=== PATIENT | male | born 1975 | race African-American/Black ===

== ENCOUNTER 2016-12-14 11:49 | Emergency (ER) | payer OTHER ==
[2016-12-14 11:54] VITALS: BP 107/87; PULSE 75; TEMP 98.4; BMI 23.7
== END 2016-12-14 12:39 | disposition left against medical advice (07) ==
LOC: FER 11:49
DX: Z53.21 Procedure and treatment not carried out due to patient leaving prior to being seen by health care provider (principal)
CPT/HCPCS: 99281-25

== ENCOUNTER 2016-12-14 12:47 | Emergency (ER) | payer OTHER ==
[2016-12-14 13:03] VITALS: BP 109/66; PULSE 72; TEMP 98; BMI 24.4
--- NOTE | 2016-12-14 13:20 | PDOC ---
History of Present Illness - General Chief Complaint: Injury Stated Complaint: RT HAND INJURY Time Seen by Provider: 12/14/16 13:04 History Source: Patient Exam Limitations: No Limitations - History of Present Illness Initial Comments: 12/14/16 13:16 CHIEF COMPLAINT: Swelling, bruising to base of right fifth finger HISTORY OF PRESENT ILLNESS: Patient is a 41-year-old male, autistic with compulsive behavior, ptosis of right eye and hypertension. Patient brought in by staff for evaluation of swelling and bruising to right fifth finger unknown injury.Good range of motion to finger. Timing/Duration: other (unknown) Severity: moderate Past History - Past Medical History Allergies/Adverse Reactions: Allergies Allergy/AdvReac Type Severity Reaction Status Date / Time Anticholinergics - Quaternary Allergy Unknown Verified 12/14/16 12:58 [Anticholinergics,Quaternary] lactose AdvReac Mild Verified 12/14/16 12:58 Home Medications: Ambulatory Orders Glycerin/Propylene Glycol [Artificial Tears Drops] 15 ml OU PRN PRN 10/31/11 Loratadine [Claritin] 10 mg PO DAILY 10/31/11 Metoprolol Tartrate [Lopressor] 25 mg PO BID 10/31/11 Cholecalciferol (Vitamin D3) [Vitamin D3] 1,000 unit PO HS 11/13/12 Mag Hydrox/Al Hydrox/Simeth [Mylanta *Suspension*] 30 ml PO ONCE 11/13/12 Olopatadine HCl [Patanol] 5 ml OP PRN PRN 11/13/12 Triamcinolone 55Mcg [place] - [Nasacort Aq Nasal [place] -] 2 spray NS DAILY Atorvastatin Ca [Lipitor] 20 mg NR ASDIR 12/14/16 Clonazepam [Klonopin] 1 mg PO ASDIR 12/14/16 Thioridazine HCl [Mellaril] 10 mg NR ASDIR 12/14/16 Cardiac Disorders: Yes (TACHYCARDIA) HTN: Yes Psychiatric Problems: Yes (COMPULSIVE D/O) Other medical history: AUTISM,RT EYE PTOSIS - Psycho/Social/Smoking Cessation Hx Anxiety: No Suicidal Ideation: No Smoking Status: No Smoking History: Unknown if ever smoked Have you smoked in the past 12 months: No Number of Cigarettes Smoked Daily: 0 Information on smoking cessation initiated: No Hx Alcohol Use: No Drug/Substance Use Hx: No Review of Systems - Review of Systems Constitutional: No: Symptoms Reported Musculoskeletal: Yes: Joint Pain, Joint Swelling Integumentary: Yes: Bruising, Erythema Neurological: No: Paresthesia, Tingling, Tremors All Other Systems: Reviewed and Negative *Physical Exam - Vital Signs Last Vital Signs Temp Pulse Resp BP Pulse Ox 98.0 F 72 18 109/66 100 12/14/16 13:00 12/14/16 13:00 12/14/16 13:00 12/14/16 13:00 12/14/16 13:00 - Physical Exam General Appearance: Yes: Appropriately Dressed. No: Apparent Distress Extremity: positive: Swelling, Erythema Integumentary: positive: Erythema, Swelling, Bruising (base of the right fifth finger, combs surface. ) Neurologic: positive: Alert, Normal Mood/Affect ED Treatment Course - RADIOLOGY Radiology Studies Ordered: Category Date Time Status HAND- RIGHT [RAD] Stat Radiology 12/14/16 13:12 Ordered Medical Decision Making - Medical Decision Making 12/14/16 13:23 A/P: Patient with injury to right fifth finger patient is nonverbal, exact incident is unknown the cause of the pain and swelling will send for x-ray to rule out fracture X-ray was negative we'll DC patient home with instructions to staff. *DC/Admit/Observation/Transfer Diagnosis at time of Disposition: Swollen finger - Discharge Dispostion Disposition: HOME Condition at time of disposition: Good Admit: No - Patient Instructions Additional Instructions: X-ray performed in emergency department is negative for acute fracture dislocation, if patient demonstrates any pain medicate with Motrin as needed, follow up as needed.
== END 2016-12-14 13:52 | disposition home or self-care (01) ==
LOC: JERFT 12:47
DX: M79.89 Other specified soft tissue disorders (principal); S69.81XA Other specified injuries of right wrist, hand and finger(s), initial encounter; X58.XXXA Exposure to other specified factors, initial encounter; Y93.89 Activity, other specified; Y92.89 Other specified places as the place of occurrence of the external cause; F84.0 Autistic disorder; F60.5 Obsessive-compulsive personality disorder; I10 Essential (primary) hypertension; H02.401 Unspecified ptosis of right eyelid
CPT/HCPCS: 73130-TC-RT; 99281-25

== ENCOUNTER 2017-08-02 19:54 | Emergency (ER) | payer OTHER ==
[2017-08-02 20:08] VITALS: BP 121/76; PULSE 89; TEMP 99.4; BMI 24.1
--- NOTE | 2017-08-02 20:22 | PDOC ---
History of Present Illness - History of Present Illness Initial Comments: 08/02/17 20:27 42 y/o M with a PMH of schizophrenia, autism with compulsive behavior presents to the ED after hitting his head against the wall. Patient is accompanied by his aide from [facility] who reports that the patient got upset and ran to his room. His aide found him with blood on the right side and left side of his head, with 3 dents in the wall from his head. Aide reports that he was given medication to calm him down and he is now acting like himself. <Nadeen Macario - Last Filed: 08/02/17 20:27> - History of Present Illness Initial Comments: 08/02/17 20:17 Physical exam: No acute distress, cooperative. Does not appear drowsy or lethargic, but affect flat consistent with his schizophrenia. His aide, who has known him for some time, states that his physical appearance and his behavior is unchanged from his baseline. Afebrile, vital signs normal Head: Superficial abrasion of the left parieto-occipital scalp. No bleeding. No deep puncture laceration. No swelling, tenderness, contusion, hematoma, or defect palpable. PERRLA 4 mm, fundi benign with sharp disc margins and good central venous pulsations. Right ptosis is old, according to his aide, and unchanged. ENT clear Neck without tenderness or deformity of the vertebral bodies, full range of motion without pain Chest clear to P&A, no chest wall or rib cage tenderness or deformity CV regular without murmur rub or gallop pulses full and symmetric no JVD or edema Abdomen soft nontender without mass or organomegaly. No pelvic or spine deformity or tenderness. Neurological C2 to 12 intact, except for old right ptosis. Strength full and symmetric. No focal sensory or motor deficits. Gait stable and unimpaired Impression: Superficial abrasion of the scalp no sign of serious head injury Plan: Clean and dress abrasions, head injury instructions, recheck if further symptoms develop. Fully ambulatory and in no distress upon discharge with his aide to follow-up as recommended <Joss Rust - Last Filed: 08/02/17 21:13> - General Chief Complaint: Injury Stated Complaint: HEAD LACERATION Time Seen by Provider: 08/02/17 20:06 Past History <Nadeen Macario - Last Filed: 08/02/17 20:27> - Past Medical History Cardiac Disorders: Yes (TACHYCARDIA) COPD: No HTN: Yes Psychiatric Problems: Yes (COMPULSIVE D/O) Other medical history: AUTISM, MUTE, PTOSIS RIGHT EYE, DRY SKIN - Suicide/Smoking/Psychosocial Hx Smoking Status: No Smoking History: Never smoked Have you smoked in the past 12 months: No Number of Cigarettes Smoked Daily: 0 Hx Alcohol Use: No Drug/Substance Use Hx: No Substance Use Type: None <Joss Rust - Last Filed: 08/02/17 21:13> - Past Medical History Allergies/Adverse Reactions: Allergies Allergy/AdvReac Type Severity Reaction Status Date / Time Anticholinergics - Quaternary Allergy Unknown Verified 12/14/16 12:58 [Anticholinergics,Quaternary] isopropamide Allergy Unknown Verified 08/02/17 19:56 lactose AdvReac Mild Verified 12/14/16 12:58 Home Medications: Ambulatory Orders Glycerin/Propylene Glycol [Artificial Tears Drops] 15 ml OU PRN PRN 10/31/11 Metoprolol Tartrate [Lopressor] 25 mg PO BID 10/31/11 Cholecalciferol (Vitamin D3) [Vitamin D3] 1,000 unit PO HS 11/13/12 Atorvastatin Ca [Lipitor] 20 mg NR ASDIR 12/14/16 Clonazepam [Klonopin] 1 mg PO ASDIR 12/14/16 Thioridazine HCl [Mellaril] 10 mg NR BID 12/14/16 Fexofenadine HCl [Lydia Allergy] 180 mg PO DAILY 08/02/17 *Physical Exam - Vital Signs Last Vital Signs Temp Pulse Resp BP Pulse Ox 99.4 F 89 16 121/76 100 08/02/17 19:55 08/02/17 19:55 08/02/17 19:55 08/02/17 19:55 08/02/17 19:55 <Nadeen Macario - Last Filed: 08/02/17 20:27> - Vital Signs Last Vital Signs Temp Pulse Resp BP Pulse Ox 99.4 F 89 16 121/76 100 08/02/17 19:55 08/02/17 19:55 08/02/17 19:55 08/02/17 19:55 08/02/17 19:55 <Joss Rust - Last Filed: 08/02/17 21:13> *DC/Admit/Observation/Transfer - Attestations Scribe Attestion: 08/02/17 20:28 Documentation prepared by Nadeen Macario, acting as biomedical engineering supervisor for Joss Bearden MD. <Nadeen Macario - Last Filed: 08/02/17 20:27> - Discharge Dispostion Admit: No <Joss Rust - Last Filed: 08/02/17 21:13> Diagnosis at time of Disposition: Abrasion of scalp Qualifiers: Encounter type: initial encounter Qualified Code(s): S00.01XA - Abrasion of scalp, initial encounter - Discharge Dispostion Disposition: HOME Condition at time of disposition: Improved - Referrals Referrals: [facility] [Primary Care Provider] - 24 hours - Patient Instructions Printed Discharge Instructions: Tetanus, Diphtheria, Pertussis (Tdap) Vaccine, DI for Closed Head Injury, DI for Abrasion - Post Discharge Activity
[2017-08-02] MEDS ORDERED: DIPHTH,PERTUSS(ACELL),TET 0.5 ML DISP.SYRIN IM ONE (20:27)
== END 2017-08-02 20:40 | disposition home or self-care (01) ==
LOC: FER 19:54
PROC: 3E0234Z Introduction of Serum, Toxoid and Vaccine into Muscle, Percutaneous Approach (ICD-10-PCS; principal; 2017-08-02)
DX: S00.01XA Abrasion of scalp, initial encounter (principal); W22.01XA Walked into wall, initial encounter; Y93.89 Activity, other specified; Y92.89 Other specified places as the place of occurrence of the external cause; F20.9 Schizophrenia, unspecified; F84.0 Autistic disorder; I10 Essential (primary) hypertension
CPT/HCPCS: 90715; 99282-25

== ENCOUNTER 2018-08-22 15:13 | Emergency (ER) | payer OTHER ==
[2018-08-22] MEDS ORDERED: TETRACAINE 0.5% HCL 0.6ML DROPPER.BOTTLE OD ONE (15:23)
[2018-08-22] MEDS ORDERED: FLUORESCEIN NA 1 EA STRIP OD ONE (15:23)
[2018-08-22] MEDS ORDERED: FLUORESCEIN NA 1 EA STRIP ONE (15:25)
[2018-08-22] MEDS ORDERED: TETRACAINE 0.5% OPHTH SOLN 2 ML BOTTLE ONE (15:25)
--- NOTE | 2018-08-22 15:39 | PDOC ---
History of Present Illness - General Chief Complaint: Eye Problem Stated Complaint: LEFT EYE REDNESS Time Seen by Provider: 08/22/18 15:19 History Source: Patient Exam Limitations: Clinical Condition - History of Present Illness Initial Comments: 08/22/18 15:34 Patient is a 43M with history of autism (non-verbal) with several behavioral disorders here today complaining of a red eye that started yesterday. Patient had a runny nose for the past several days as well. Aide reports that he has a history of smearing feces and self-harm. No other symptoms have been noted. History is limited as patient is very limited when it comes to communication. Past History - Past Medical History Allergies/Adverse Reactions: Allergies Allergy/AdvReac Type Severity Reaction Status Date / Time Anticholinergics - Quaternary Allergy Unknown Verified 08/22/18 15:19 [Anticholinergics,Quaternary] isopropamide Allergy Unknown Verified 08/22/18 15:19 lactose AdvReac Mild Verified 08/22/18 15:19 Home Medications: Ambulatory Orders Glycerin/Propylene Glycol [Artificial Tears Drops] 15 ml OU PRN PRN 10/31/11 Metoprolol Tartrate [Lopressor] 25 mg PO BID 10/31/11 Cholecalciferol (Vitamin D3) [Vitamin D3] 1,000 unit PO HS 11/13/12 Atorvastatin Ca [Lipitor] 20 mg NR ASDIR 12/14/16 Clonazepam [Klonopin] 1 mg PO ASDIR 12/14/16 Thioridazine HCl [Mellaril] 10 mg NR BID 12/14/16 Fexofenadine HCl [Lydia Allergy] 180 mg PO DAILY 08/02/17 Erythromycin 0.5% Eye Ointment [Erythromycin 0.5% Eye Ointment -] 1 applic OD DAILY #1 tube 08/22/18 Polymyxin B Sulf/Trimethoprim [Polymyxin B-Tmp Eye Drops] 1 drop OD TID 10 Days #10 ml 08/22/18 Cardiac Disorders: Yes (TACHYCARDIA) COPD: No HTN: Yes Psychiatric Problems: Yes (COMPULSIVE D/O) Other medical history: AUTISM,RT EYE PTOSIS - Suicide/Smoking/Psychosocial Hx Smoking Status: No Smoking History: Never smoked Have you smoked in the past 12 months: No Number of Cigarettes Smoked Daily: 0 Information on smoking cessation initiated: No Hx Alcohol Use: No Drug/Substance Use Hx: No Substance Use Type: None Review of Systems - Review of Systems Able to Perform ROS?: No (2/2 clinical condition) *Physical Exam - Vital Signs Last Vital Signs Temp Pulse Resp BP Pulse Ox 98.4 F 87 20 109/68 100 08/22/18 15:15 08/22/18 15:15 08/22/18 15:15 08/22/18 15:15 08/22/18 15:15 - Physical Exam Comments: 08/22/18 15:38 GENERAL: Awake, alert, and fully oriented, in no acute distress HEAD: No signs of trauma, normocephalic, atraumatic EYES: PERRLA, EOMI, sclera anicteric, swollen eyelid on right, no photophobia, injected sclera on right. Fluorescein exam normal. ENT: Auricles normal inspection, hearing grossly normal, nares patent, oropharynx clear without exudates. Moist mucosa NECK: Normal ROM, supple, no lymphadenopathy, JVD, or masses LUNGS: No distress, speaks full sentences, clear to auscultation bilaterally HEART: Regular rate and rhythm, normal S1 and S2, no murmurs, rubs or gallops, peripheral pulses normal and equal bilaterally. ABDOMEN: Soft, nontender, normoactive bowel sounds. No guarding, no rebound. No masses EXTREMITIES: Normal inspection, Normal range of motion, no edema. No clubbing or cyanosis. NEUROLOGICAL: Cranial nerves II through XII grossly intact. Normal speech, normal gait, no focal sensorimotor deficits SKIN: Warm, Dry, normal turgor, no rashes or lesions noted. Moderate Sedation - Procedure Monitoring Vital Signs: Procedure Monitoring Vital Signs Temperature 98.4 F 08/22/18 15:15 Pulse Rate 87 08/22/18 15:15 Respiratory Rate 20 08/22/18 15:15 Blood Pressure 109/68 08/22/18 15:15 O2 Sat by Pulse Oximetry (%) 100 08/22/18 15:15 ED Treatment Course - Medications Given in the ED: ED Medications Discontinued Medications Generic Name Dose Route Start Last Admin Trade Name Freq PRN Reason Stop Dose Admin Fluorescein Sodium 1 ea 08/22/18 15:23 08/22/18 15:26 Fluorets - OD 08/22/18 15:24 1 ea ONCE ONE Administration Tetracaine HCl 1 drop 08/22/18 15:23 08/22/18 15:26 Tetravisc 0.5% Eye Drops - OD 08/22/18 15:24 1 drop ONCE ONE Administration Medical Decision Making - Medical Decision Making 08/22/18 15:38 Patient is 43M here today with conjunctivitis. Given risk factors, will cover. Patient has optho follow up available through [facility]. Aide aware of need to follow up. *DC/Admit/Observation/Transfer Diagnosis at time of Disposition: Conjunctivitis - Discharge Dispostion Disposition: HOME Condition at time of disposition: Good Decision to Admit order: No - Prescriptions Prescriptions: Erythromycin 0.5% Eye Ointment [Erythromycin 0.5% Eye Ointment -] 1 applic OD DAILY #1 tube Polymyxin B Sulf/Trimethoprim [Polymyxin B-Tmp Eye Drops] 1 drop OD TID 10 Days #10 ml - Referrals - Patient Instructions Printed Discharge Instructions: Conjunctivitis Additional Instructions: Please follow up with optho tomorrow. Please return if you have any new worsening or concerning symptoms. - Post Discharge Activity
--- NOTE | 2018-08-22 15:47 | PDOC ---
Attending Attestation - Resident Resident Name: DaledanielJake - ED Attending Attestation I have performed the following: I have examined & evaluated the patient, The case was reviewed & discussed with the resident, I agree w/resident's findings & plan, Exceptions are as noted - HPI HPI: 08/22/18 15:45 43 yo male h/o autism often spreading feces, here with c/o bilat eye redness. started few days ago. no f/c no cough did have mild rhinorrhea earlier today. no other comlaints. pt is nonverbal. does communicate with signs. history provided by worker from [facility]. - Physicial Exam PE: 08/22/18 15:46 bilat eye conj injected. no discharge. right eye lid ptosis ( old) PerrL. flourescin no uptake with [place] lamp. eomi. lungs clear bilaterally heart rrr no mrg. - Medical Decision Making 08/22/18 15:47 likely viral conjunctivitis but due to fact [facility] will tx with abx. polytrim and erythromycin ointment.
[2018-08-22 15:58] VITALS: BP 109/68; PULSE 87; TEMP 98.4; BMI 23.0
== END 2018-08-22 16:14 | disposition home or self-care (01) ==
LOC: FER 15:13
DX: H10.9 Unspecified conjunctivitis (principal); F84.0 Autistic disorder; I10 Essential (primary) hypertension; F42.9 Obsessive-compulsive disorder, unspecified
CPT/HCPCS: 99281-25

== ENCOUNTER 2019-01-10 10:45 | Emergency (ER) | payer OTHER ==
[2019-01-10 11:13] VITALS: BP 108/63; PULSE 73; TEMP 97.8; BMI 24.4
--- NOTE | 2019-01-10 11:31 | PDOC ---
History of Present Illness - General Chief Complaint: Pain Stated Complaint: ABD PAIN Time Seen by Provider: 01/10/19 11:27 History Source: Patient Exam Limitations: Other (autisim) Past History - Past Medical History Allergies/Adverse Reactions: Allergies Allergy/AdvReac Type Severity Reaction Status Date / Time Anticholinergics - Quaternary Allergy Unknown Verified 01/10/19 11:10 [Anticholinergics,Quaternary] isopropamide Allergy Unknown Verified 01/10/19 11:10 lactose AdvReac Mild Verified 01/10/19 11:10 Home Medications: Ambulatory Orders Glycerin/Propylene Glycol [Artificial Tears Drops] 15 ml OU PRN PRN 10/31/11 Metoprolol Tartrate [Lopressor] 25 mg PO BID 10/31/11 Cholecalciferol (Vitamin D3) [Vitamin D3] 1,000 unit PO HS 11/13/12 Atorvastatin Ca [Lipitor] 20 mg NR ASDIR 12/14/16 Clonazepam [Klonopin] 1 mg PO ASDIR 12/14/16 Thioridazine HCl [Mellaril] 10 mg NR BID 12/14/16 Fexofenadine HCl [Lydia Allergy] 180 mg PO DAILY 08/02/17 Gentamicin 0.3% Eye Ointment - 1 applic TP TID #1 tube 08/23/18 Cardiac Disorders: Yes (TACHYCARDIA) COPD: No HTN: Yes Psychiatric Problems: Yes (COMPULSIVE D/O) - Suicide/Smoking/Psychosocial Hx Smoking Status: No Smoking History: Never smoked Have you smoked in the past 12 months: No Number of Cigarettes Smoked Daily: 0 Hx Alcohol Use: No Drug/Substance Use Hx: No Substance Use Type: None Review of Systems - Review of Systems Constitutional: Yes: Fever ABD/GI: No: Constipated, Diarrhea, Vomiting : No: Dysuria, Hematuria *Physical Exam - Vital Signs Last Vital Signs Temp Pulse Resp BP Pulse Ox 97.8 F 73 18 108/63 98 01/10/19 11:10 01/10/19 11:10 01/10/19 11:10 01/10/19 11:10 01/10/19 11:10 - Physical Exam General Appearance: Yes: Appropriately Dressed. No: Apparent Distress HEENT: positive: Normal Voice Neck: positive: Supple Respiratory/Chest: negative: Respiratory Distress Gastrointestinal/Abdominal: positive: Normal Bowel Sounds, Soft. negative: Tender, Distended, Guarding, Rebound Integumentary: positive: Dry, Warm Neurologic: positive: Alert ED Treatment Course - LABORATORY CBC & Chemistry Diagram: 01/10/19 12:00 01/10/19 12:00 Medical Decision Making - Medical Decision Making 01/10/19 11:32 43-year-old female male, history of autism, non-verbal, several behavioral d/o, BIB [facility] staff w/ abdiel-umbilical pain that pt has been c/o since yesterday. States pt has a fever of 102 yesterday. No diarrhea, vomiting or dysuria/hematuria See exam Abd pain w/ fever Fever since resolved Hx sig limited given autism/psych hx Well yevgeniy and stable here w/ benign abd -will check basic labs at this time 01/10/19 17:[address] read as negative for acute process. There were incidental findings such as minor bilateral pleural effusions seen in the lower chest with no obvious infiltrate. Of note, patient has no cough, shortness of breath or chest pain and no clinical evidence of pneumonia at this time. Also seen is some mild urinary bladder over distention. Pt's UA negative and pt has no complaint of acute urinary sxs at this time. Pt remains well appearing throughout ED visit with benign abdomen on rpt exam. Staff member given copy of labs and CT report to follow-up with patient's PMD. Reasons to return discussed with staff *DC/Admit/Observation/Transfer Diagnosis at time of Disposition: Abdominal pain Qualifiers: Abdominal location: unspecified location Qualified Code(s): R10.9 - Unspecified abdominal pain - Discharge Dispostion Disposition: HOME Condition at time of disposition: Good - Referrals - Patient Instructions Printed Discharge Instructions: DI for Abdominal Pain-Adult Additional Instructions: The cause of pt's abdominal pain is unclear at this time as his labs and urine were normal. Patient also had a CAT scan done showing no evidence of an acute process. There were some other incidental minor findings on CT scan that do not warrant further workup in ED Pt was given copy of labs and CT report. Please have patient follow-up with his PMD - Post Discharge Activity
[2019-01-10 12:11] LABS: BASO % 0.7 % (0-2.0); EOS % 1.8 % (0-4.5); HEMATOCRIT 41.5 % (35.4-49); HEMOGLOBIN 14.2 GM/dL (11.7-16.9); LYMPH % 29.3 % (8-40); MCH 29.4 pg (25.7-33.7); MCHC 34.2 g/dl (32.0-35.9); MEAN PLT VOLUME 6.4 fl (7.5-11.1); MONO % 10.5 % (3.8-10.2); NEUT % 57.7 % (42.8-82.8); PLATELET COUNT 204 K/MM3 (134-434); RBC 4.82 M/mm3 (4.00-5.60); WHITE BLOOD COUNT 4.1 K/mm3 (4.0-10.0)
[2019-01-10 12:45] LABS: ALBUMIN 3.7 g/dl (3.4-5.0); BILIRUBIN,TOTAL 0.4 mg/dL (0.2-1); BLOOD UREA NITROGEN 8.9 mg/dL (7-18); CALCIUM 9.2 mg/dL (8.5-10.1); CREATININE 1.2 mg/dL (0.55-1.3); POTASSIUM 4.3 mmol/L (3.5-5.1); TOT PROT 6.9 g/dl (6.4-8.2)
[2019-01-10 13:55] LABS: URINE APPEARANCE CLEAR; URINE BILIRUBIN NEGATIVE (NEGATIVE); URINE COLOR YELLOW; URINE GLUCOSE (UA) NEGATIVE (NEGATIVE); URINE KETONE NEGATIVE (NEGATIVE); URINE LEUK ESTERASE NEGATIVE (NEGATIVE); URINE NITRITE NEGATIVE (NEGATIVE); URINE PROTEIN NEGATIVE (NEGATIVE); URINE UROBILINOGEN 0.2 mg/dL (0.2-1.0)
== END 2019-01-10 18:06 | disposition home or self-care (01) ==
LOC: JER 10:45
DX: R10.9 Unspecified abdominal pain (principal); I10 Essential (primary) hypertension; R00.0 Tachycardia, unspecified; F84.0 Autistic disorder; F42.8 Other obsessive-compulsive disorder
CPT/HCPCS: 36415; 74177-TC; 80053; 81003; 83690; 85025; 99282-25

== ENCOUNTER 2021-08-02 17:22 | Emergency (ER) | payer OTHER ==
[2021-08-02 18:43] VITALS: TEMP 97.8; BMI 22.4
[2021-08-02 21:35] LABS: BASO % 0.6 % (0-2.0); EOS % 8.2 % (0-4.5); HEMATOCRIT 38.2 % (35.4-49); HEMOGLOBIN 13.1 GM/dL (11.7-16.9); LYMPH % 42.3 % (8-40); MCH 30.4 pg (25.7-33.7); MCHC 34.3 g/dl (32.0-35.9); MEAN CELL VOLUME 88.7 fl (80-96); MEAN PLT VOLUME 7.5 fl (7.5-11.1); MONO % 8.8 % (3.8-10.2); NEUT % 40.1 % (42.8-82.8); PLATELET COUNT 133 10^3/uL (134-434); RBC 4.31 M/mm3 (4.00-5.60); RDW 13.6 % (11.9-15.9); WHITE BLOOD COUNT 2.9 K/mm3 (4.0-10.0)
[2021-08-02 21:44] LABS: CHLORIDE 106 mmol/L (98-107); SODIUM 141 mmol/L (136-145)
[2021-08-02 21:46] LABS: ANION GAP 5 MMOL/L (8-16); CALCIUM 9.4 mg/dL (8.5-10.1); CO2 31 mmol/L (21-32); GLUCOSE,RANDOM 72 mg/dL (74-106)
[2021-08-02 21:47] LABS: ALBUMIN 3.6 g/dl (3.4-5.0); BLOOD UREA NITROGEN 9.9 mg/dL (7-18); MAGNESIUM 2.4 mg/dL (1.8-2.4)
[2021-08-02 21:49] LABS: CREATININE 0.8 mg/dL (0.55-1.3)
[2021-08-02 21:50] LABS: PHOSPHOROUS 3.7 mg/dL (2.5-4.9); SGOT/AST 44 U/L (15-37); SGPT/ALT 48 U/L (13-61)
[2021-08-02 21:51] LABS: BILIRUBIN,TOTAL 0.3 mg/dL (0.2-1); TOT PROT 6.4 g/dl (6.4-8.2)
[2021-08-02] MEDS ORDERED: DEXTROSE 50%-WATER - 25 GM/50 ML VIAL IVPUSH ONE (21:51)
[2021-08-02 21:52] LABS: ALK PHOS 90 U/L (45-117)
[2021-08-02 22:10] LABS: PH,URINE 6.5 (5.0-8.0); URINE APPEARANCE CLEAR; URINE BILIRUBIN NEGATIVE (NEGATIVE); URINE COLOR YELLOW; URINE GLUCOSE (UA) NEGATIVE (NEGATIVE); URINE KETONE NEGATIVE (NEGATIVE); URINE LEUK ESTERASE NEGATIVE (NEGATIVE); URINE NITRITE NEGATIVE (NEGATIVE); URINE PROTEIN NEGATIVE (NEGATIVE); URINE UROBILINOGEN 0.2 mg/dL (0.2-1.0)
[2021-08-02] MEDS ORDERED: SODIUM CHLORIDE 0.9% 500 ML INFUS.BAG IV ONE (22:44)
[2021-08-02] MEDS ORDERED: levETIRAcetam 500 MG/5 ML ORAL SOLUTION (UNIT-DOSE CUPS) PO ONE (22:58)
[2021-08-02 23:01] VITALS: BP 119/74; PULSE 50
== END 2021-08-02 23:57 | disposition home or self-care (01) ==
LOC: JER 17:22
PROC: 3E033NZ Introduction of Analgesics, Hypnotics, Sedatives into Peripheral Vein, Percutaneous Approach (ICD-10-PCS; principal; 2021-08-02)
DX: Z86.69 Personal history of other diseases of the nervous system and sense organs (principal)
CPT/HCPCS: 36415; 70450-TC; 71045-TC-FY; 80053; 80177; 81003; 82550; 82553; 82962; 83735; 84100; 84443; 84484; 85025; 87086; 93005; 93010; 99284-25

== ENCOUNTER 2021-08-16 21:40 | Inpatient (IN) | payer OTHER ==
[2021-08-16 22:43] LABS: BASO % 0.5 % (0-2.0); HEMATOCRIT 40.5 % (35.4-49); HEMOGLOBIN 13.8 GM/dL (11.7-16.9); LYMPH % 25.4 % (8-40); MCH 30.2 pg (25.7-33.7); MCHC 34.1 g/dl (32.0-35.9); MEAN CELL VOLUME 88.5 fl (80-96); MONO % 8.7 % (3.8-10.2); NEUT % 56.4 % (42.8-82.8); RBC 4.57 M/mm3 (4.00-5.60); RDW 13.8 % (11.9-15.9); WHITE BLOOD COUNT 4.4 K/mm3 (4.0-10.0)
[2021-08-16 23:00] LABS: MEAN PLT VOLUME 7.5 fl (7.5-11.1); PLATELET COUNT 150 10^3/uL (134-434)
[2021-08-16 23:01] LABS: PLATELET ESTIMATE DECREASED
[2021-08-16 23:13] LABS: CALCIUM 9.8 mg/dL (8.5-10.1)
[2021-08-16 23:14] LABS: ALBUMIN 3.8 g/dl (3.4-5.0)
[2021-08-16] MEDS ORDERED: LACTATED RINGERS SOLUTION 1000 ML INFUS.BAG IV ONE (23:17)
[2021-08-16 23:19] LABS: BILIRUBIN,TOTAL 0.3 mg/dL (0.2-1); TOT PROT 6.8 g/dl (6.4-8.2)
[2021-08-17 02:54] LABS: PH,URINE 6.5 (5.0-8.0); URINE APPEARANCE CLEAR; URINE BILIRUBIN NEGATIVE (NEGATIVE); URINE COLOR YELLOW; URINE GLUCOSE (UA) NEGATIVE (NEGATIVE); URINE KETONE NEGATIVE (NEGATIVE); URINE LEUK ESTERASE NEGATIVE (NEGATIVE); URINE NITRITE NEGATIVE (NEGATIVE); URINE PROTEIN NEGATIVE (NEGATIVE)
[2021-08-17] MEDS ORDERED: levETIRAcetam 500 MG/5 ML INJECTION VIAL IVPB ONE ×2 (05:28→05:29)
[2021-08-17] MEDS ORDERED: LORazepam 2 MG/ML SDV VIAL IVPUSH ONE (06:43)
[2021-08-17] MEDS ORDERED: COSYNTROPIN 0.25 MG VIAL IVPUSH ONE (08:30)
[2021-08-17] MEDS ORDERED: levETIRAcetam 250 MG TABLET PO SCH (10:00)
[2021-08-17] MEDS: DEXTROSE 5%-0.45% SALINE 1,000 ML IV SCH (13:46)
[2021-08-17 15:14] LABS: BASO % 0.4 % (0-2.0); EOS % 4.2 % (0-4.5); HEMATOCRIT 37.5 % (35.4-49); HEMOGLOBIN 12.9 GM/dL (11.7-16.9); LYMPH % 10.9 % (8-40); MCH 30.4 pg (25.7-33.7); MCHC 34.5 g/dl (32.0-35.9); MEAN CELL VOLUME 88.2 fl (80-96); MEAN PLT VOLUME 7.6 fl (7.5-11.1); MONO % 8.1 % (3.8-10.2); NEUT % 76.4 % (42.8-82.8); PLATELET COUNT 171 10^3/uL (134-434); RBC 4.25 M/mm3 (4.00-5.60); RDW 13.6 % (11.9-15.9); WHITE BLOOD COUNT 5.3 K/mm3 (4.0-10.0)
[2021-08-17 15:40] LABS: ALBUMIN 3.5 g/dl (3.4-5.0); BLOOD UREA NITROGEN 16.2 mg/dL (7-18); MAGNESIUM 2.1 mg/dL (1.8-2.4)
[2021-08-17 15:43] LABS: CREATININE 1.4 mg/dL (0.55-1.3); PHOSPHOROUS 3.5 mg/dL (2.5-4.9)
[2021-08-17 15:44] LABS: BILIRUBIN,TOTAL 0.3 mg/dL (0.2-1)
[2021-08-17 15:45] LABS: TOT PROT 6.3 g/dl (6.4-8.2)
[2021-08-17] MEDS: levETIRAcetam 500 MG TABLET (FP) PO SCH (21:00)
[2021-08-18] MEDS: levETIRAcetam 500 MG TABLET (FP) PO SCH (09:18)
[2021-08-18] MEDS: DEXTROSE 5%-0.45% SALINE 1,000 ML IV SCH (09:18)
[2021-08-18 09:35] LABS: CALCIUM 9.4 mg/dL (8.5-10.1)
[2021-08-18 09:36] LABS: BLOOD UREA NITROGEN 14.1 mg/dL (7-18); MAGNESIUM 2.2 mg/dL (1.8-2.4)
[2021-08-18 09:39] LABS: CREATININE 1.1 mg/dL (0.55-1.3)
[2021-08-18 09:40] LABS: BILIRUBIN,TOTAL 0.5 mg/dL (0.2-1); TOT PROT 7.3 g/dl (6.4-8.2)
[2021-08-18 15:12] VITALS: BMI 19.5
[2021-08-18 15:37] VITALS: BP 127/71; PULSE 78; TEMP 97.9
== END 2021-08-18 18:06 | disposition home or self-care (01) | DRG 53 ==
LOC: JER 21:40 → JERBED 23:19 → J8W 08-17 08:30
PROVIDERS: ADMIT Internal Medicine; ATTEND Internal Medicine
DX: G40.909 Epilepsy, unspecified, not intractable, without status epilepticus (principal); I10 Essential (primary) hypertension; F84.0 Autistic disorder; R68.0 Hypothermia, not associated with low environmental temperature; I95.9 Hypotension, unspecified; R53.83 Other fatigue; S09.90XA Unspecified injury of head, initial encounter; W19.XXXA Unspecified fall, initial encounter; Y93.89 Activity, other specified; Y92.230 Patient room in hospital as the place of occurrence of the external cause; Y99.8 Other external cause status
CPT/HCPCS: 36415; 70450-TC; 71045-TC-FY; 72125-TC; 80053; 81003; 82136; 83605; 83735; 83918; 84100; 84443; 85025; 86780; 87040; 87086; 93005; 93010; 99285-25; C9803; U0003; U0005

== ENCOUNTER 2021-10-10 09:58 | Inpatient (IN) | payer OTHER ==
[2021-10-10 11:34] LABS: VENOUS BASE EXCESS 0.4 mmol/L (-2-2); VENOUS O2 SATURATION 75.8 % (70-80); VENOUS PCO2 55.8 mmHg (38-52); VENOUS PH 7.312 (7.310-7.410)
[2021-10-10 11:40] LABS: BASO % 0.5 % (0-2.0); EOS % 1.5 % (0-4.5); HEMATOCRIT 34.2 % (35.4-49); HEMOGLOBIN 11.8 GM/dL (11.7-16.9); LYMPH % 34.2 % (8-40); MCH 30.4 pg (25.7-33.7); MCHC 34.5 g/dl (32.0-35.9); MEAN CELL VOLUME 88.2 fl (80-96); MEAN PLT VOLUME 7.4 fl (7.5-11.1); MONO % 7.3 % (3.8-10.2); NEUT % 56.5 % (42.8-82.8); PLATELET COUNT 185 10^3/uL (134-434); RBC 3.88 M/mm3 (4.00-5.60); RDW 13.7 % (11.9-15.9); WHITE BLOOD COUNT 2.2 K/mm3 (4.0-10.0)
[2021-10-10 11:46] LABS: INR 1.09 (0.83-1.09); PROTHROMBIN TIME (PATIENT) 12.5 SEC (9.7-13.0)
[2021-10-10 11:49] LABS: ACTIVATED PTT 39.9 SECONDS (25.2-36.5)
[2021-10-10 12:57] LABS: LACTIC ACID 2.8 mmol/L (0.4-2.0)
[2021-10-10] MEDS ORDERED: SODIUM CHLORIDE 0.9% 1000 ML INFUS.BAG IV ONE ×2 (12:59→14:40)
[2021-10-10 13:15] LABS: PH,URINE 5.5 (5.0-8.0); URINE APPEARANCE CLEAR; URINE BILIRUBIN NEGATIVE (NEGATIVE); URINE COLOR YELLOW; URINE GLUCOSE (UA) NEGATIVE (NEGATIVE); URINE KETONE NEGATIVE (NEGATIVE); URINE LEUK ESTERASE NEGATIVE (NEGATIVE); URINE NITRITE NEGATIVE (NEGATIVE); URINE PROTEIN NEGATIVE (NEGATIVE); URINE UROBILINOGEN 0.2 mg/dL (0.2-1.0)
[2021-10-10 13:34] LABS: ALBUMIN 3.3 g/dl (3.4-5.0); BLOOD UREA NITROGEN 17.4 mg/dL (7-18); CALCIUM 9.4 mg/dL (8.5-10.1)
[2021-10-10 13:39] LABS: BILIRUBIN,TOTAL 0.2 mg/dL (0.2-1); TOT PROT 6.1 g/dl (6.4-8.2)
[2021-10-10] MEDS ORDERED: DEXTROSE 50%-WATER 25 GM/50 ML DISP.SYRIN ONE ×4 (13:46→15:45)
[2021-10-10] MEDS ORDERED: DEXTROSE 50%-WATER - 25 GM/50 ML VIAL IVPUSH ONE ×4 (13:46→15:29)
[2021-10-10 14:34] LABS: COCAINE, UR NEGATIVE (NEGATIVE); METHADONE, UR NEGATIVE (NEGATIVE); OPIATES, URI NEGATIVE (NEGATIVE); PHENCYCLIDINE,URINE NEGATIVE (NEGATIVE); URINE AMPHETAMINES NEGATIVE (NEGATIVE); URINE BARBITURATES NEGATIVE (NEGATIVE); URINE BENZODIAZEPINES NEGATIVE (NEGATIVE)
[2021-10-10] MEDS ORDERED: SODIUM CHLORIDE 1,000 ML IV ONE (14:39)
[2021-10-10] MEDS ORDERED: LORazepam 2 MG/ML SDV VIAL IVPUSH ONE (14:48)
[2021-10-10] MEDS ORDERED: PIPERACILLIN/TAZOB 4.5 GM 4.5 GM in DEXTROSE 5%-WATER 100 ML IVPB ONE (15:36)
[2021-10-10] MEDS ORDERED: VANCOMYCIN 1 GM in D5W (PRE-DOCKED) 1,000 MG/250 ML IVPB ONE (15:36)
[2021-10-10] MEDS ORDERED: DEXTROSE 5%-NORMAL SALINE 1,000 ML IV SCH (15:45)
[2021-10-10] MEDS ORDERED: PIPERACILLIN/TAZOB 4.5 GM 4.5 GM/100 ML BAG IVPB ONE (15:45)
[2021-10-10] MEDS ORDERED: VANCOMYCIN 1 GRAM (PRE-DOCKED) 1,000 MG/250 ML BAG IVPB ONE (15:46)
[2021-10-10] MEDS ORDERED: GLUCAGON 1 MG KIT IVPUSH ONE (16:00)
[2021-10-10] MEDS ORDERED: GLUCAGON 1 MG KIT ONE (16:02)
[2021-10-10] MEDS ORDERED: SODIUM CHLORIDE 1,000 ML IV STA (16:11)
[2021-10-10] MEDS ORDERED: DEXTROSE 50%-WATER - 25 GM/50 ML VIAL IVPUSH PRN (18:41)
[2021-10-10] MEDS ORDERED: VANCOMYCIN/WATER BAGS 1,250 MG/250 ML BAG IVPB SCH (19:30)
[2021-10-10] MEDS: CHLORHEXIDINE GLUCONATE 4% CLEANSER FOR DECOLONIZATION TP SCH (22:08)
[2021-10-10] MEDS: MUPIROCIN 2% TOPICAL OINTMENT FOR DECOLONIZATION NS SCH (22:08)
[2021-10-10] MEDS: levETIRAcetam 500 MG/5 ML INJECTION VIAL IVPB SCH (22:08)
[2021-10-11] MEDS ORDERED: MELATONIN 5 MG TABLETS PO ONE (00:44)
[2021-10-11] MEDS ORDERED: LORazepam 2 MG/ML SDV VIAL IM ONE (03:29)
[2021-10-11] MEDS ORDERED: VANCOMYCIN/WATER BAGS 1,250 MG/250 ML BAG IVPB SCH (04:00)
[2021-10-11] MEDS: VANCOMYCIN/WATER BAGS 1,250 MG/250 ML BAG IVPB SCH ×4 (06:24→16:12)
[2021-10-11 07:18] LABS: BASO % 0.2 % (0-2.0); EOS % 0.9 % (0-4.5); HEMATOCRIT 33.8 % (35.4-49); HEMOGLOBIN 11.6 GM/dL (11.7-16.9); LYMPH % 18.4 % (8-40); MCH 30.5 pg (25.7-33.7); MCHC 34.3 g/dl (32.0-35.9); MEAN CELL VOLUME 88.8 fl (80-96); MEAN PLT VOLUME 7.5 fl (7.5-11.1); MONO % 6.1 % (3.8-10.2); NEUT % 74.4 % (42.8-82.8); PLATELET COUNT 181 10^3/uL (134-434); RBC 3.81 M/mm3 (4.00-5.60); RDW 13.2 % (11.9-15.9); WHITE BLOOD COUNT 3.3 K/mm3 (4.0-10.0)
[2021-10-11 07:31] LABS: ALBUMIN 2.9 g/dl (3.4-5.0); BILIRUBIN,TOTAL 0.3 mg/dL (0.2-1); BLOOD UREA NITROGEN 12.1 mg/dL (7-18); TOT PROT 5.6 g/dl (6.4-8.2)
[2021-10-11 07:32] LABS: CALCIUM 8.6 mg/dL (8.5-10.1)
[2021-10-11 07:33] LABS: CREATININE 1.2 mg/dL (0.55-1.3); MAGNESIUM 1.7 mg/dL (1.8-2.4)
[2021-10-11] MEDS ORDERED: levETIRAcetam 500 MG/5 ML INJECTION VIAL IVPB ONE (07:43)
[2021-10-11] MEDS ORDERED: DEXTROSE 50%-WATER - 25 GM/50 ML VIAL IVPUSH ONE (08:51)
[2021-10-11] MEDS: MUPIROCIN 2% TOPICAL OINTMENT FOR DECOLONIZATION NS SCH ×2 (10:23→21:19)
[2021-10-11] MEDS: levETIRAcetam 500 MG/5 ML INJECTION VIAL IVPB SCH ×2 (10:24→21:18)
[2021-10-11] MEDS: ENOXAPARIN NA (PORCINE) 40 MG/0.4 ML DISP.SYRIN SQ SCH (10:25)
[2021-10-11] MEDS ORDERED: PIPERACILLIN/TAZOBACTAM 3.375 GM VIAL IVPB ONE ×2 (12:15→16:04)
[2021-10-11] MEDS ORDERED: DEXTROSE 5%-WATER - 50 ML IVPB ONE ×2 (12:15→16:05)
[2021-10-11] MEDS: VANCOMYCIN/WATER FOR INJ (PEG) 1,000 MG/200 ML BAG IVPB SCH ×2 (12:25→23:31)
[2021-10-11] MEDS: PIPERACILLIN/TAZOB 3.375 GM 3.375 GM in DEXTROSE 5%-WATER - 50 ML IVPB SCH ×2 (12:25→17:26)
[2021-10-11] MEDS: AMINO ACIDS 4.25%/D5W 1,000 ML IV SCH (13:00)
[2021-10-11] MEDS ORDERED: LORazepam 2 MG/ML SDV VIAL IVPUSH ONE (15:45)
[2021-10-11] MEDS ORDERED: LIDOCAINE HCL 1%, 10 MG/ML (20ML VIAL) ONE (16:57)
[2021-10-11] MEDS ORDERED: MIDAZOLAM HCL 2 MG/2 ML SINGLE DOSE VIAL IVPUSH ONE (17:00)
[2021-10-11] MEDS ORDERED: MIDAZOLAM HCL 2 MG/2 ML SINGLE DOSE VIAL ONE (17:04)
[2021-10-11] MEDS: LIDOCAINE HCL 2% (50ML VIAL) SQ ONE ×2 (17:17→17:19)
[2021-10-11] MEDS ORDERED: diazePAM CARPU-JECT 10 MG/2 ML DISP.SYRIN IVPUSH ONE ×2 (17:18→17:36)
[2021-10-11 19:06] LABS: HIV INTERPRETATION NEGATIVE (NEGATIVE)
[2021-10-11 20:59] LABS: BF GLUCOSE (CSF ONLY) 55 mg/dL (40-70)
[2021-10-11] MEDS: CHLORHEXIDINE GLUCONATE 4% CLEANSER FOR DECOLONIZATION TP SCH (21:17)
[2021-10-11 21:58] LABS: CSF APPEARANCE CLEAR (CLEAR); CSF COLOR COLORLESS (COLORLESS); CSF WBC 1 mm3 (0-5)
[2021-10-12] MEDS ORDERED: PIPERACILLIN/TAZOBACTAM 3.375 GM VIAL IVPB ONE ×3 (00:14→16:51)
[2021-10-12] MEDS ORDERED: DEXTROSE 5%-WATER - 50 ML IVPB ONE ×3 (00:14→16:51)
[2021-10-12] MEDS: PIPERACILLIN/TAZOB 3.375 GM 3.375 GM in DEXTROSE 5%-WATER - 50 ML IVPB SCH ×3 (02:26→17:31)
[2021-10-12 06:51] LABS: BASO % 0.1 % (0-2.0); EOS % 0.4 % (0-4.5); HEMATOCRIT 33.7 % (35.4-49); HEMOGLOBIN 11.7 GM/dL (11.7-16.9); LYMPH % 8.5 % (8-40); MCH 30.5 pg (25.7-33.7); MCHC 34.6 g/dl (32.0-35.9); MEAN CELL VOLUME 88.1 fl (80-96); MONO % 4.2 % (3.8-10.2); NEUT % 86.8 % (42.8-82.8); PLATELET COUNT 142 10^3/uL (134-434); RBC 3.82 M/mm3 (4.00-5.60); RDW 13.2 % (11.9-15.9); WHITE BLOOD COUNT 11.1 K/mm3 (4.0-10.0)
[2021-10-12 06:54] LABS: CALCIUM 8.8 mg/dL (8.5-10.1)
[2021-10-12 06:55] LABS: ALBUMIN 2.9 g/dl (3.4-5.0); BLOOD UREA NITROGEN 11.5 mg/dL (7-18); MAGNESIUM 1.9 mg/dL (1.8-2.4)
[2021-10-12 06:58] LABS: PHOSPHOROUS 2.9 mg/dL (2.5-4.9)
[2021-10-12 06:59] LABS: TOT PROT 5.5 g/dl (6.4-8.2)
[2021-10-12 07:00] LABS: BILIRUBIN,TOTAL 0.6 mg/dL (0.2-1)
[2021-10-12] MEDS: KCL 10 MEQ IVPB 10 MEQ/100 ML INFUS.BAG IVPB SCH ×2 (08:48→10:10)
[2021-10-12] MEDS: ENOXAPARIN NA (PORCINE) 40 MG/0.4 ML DISP.SYRIN SQ SCH (09:46)
[2021-10-12] MEDS: MUPIROCIN 2% TOPICAL OINTMENT FOR DECOLONIZATION NS SCH ×2 (09:46→21:49)
[2021-10-12] MEDS: levETIRAcetam 500 MG/5 ML INJECTION VIAL IVPB SCH ×2 (09:46→21:49)
[2021-10-12] MEDS: VANCOMYCIN/WATER FOR INJ (PEG) 1,000 MG/200 ML BAG IVPB SCH ×2 (11:15→23:24)
[2021-10-12] MEDS: AMINO ACIDS 4.25%/D5W 1,000 ML IV SCH (16:13)
[2021-10-12] MEDS: CHLORHEXIDINE GLUCONATE 4% CLEANSER FOR DECOLONIZATION TP SCH (21:49)
[2021-10-13] MEDS ORDERED: PIPERACILLIN/TAZOBACTAM 3.375 GM VIAL IVPB ONE ×3 (00:17→17:23)
[2021-10-13] MEDS ORDERED: DEXTROSE 5%-WATER - 50 ML IVPB ONE ×3 (00:18→17:23)
[2021-10-13] MEDS: PIPERACILLIN/TAZOB 3.375 GM 3.375 GM in DEXTROSE 5%-WATER - 50 ML IVPB SCH ×3 (02:00→17:33)
[2021-10-13 06:55] LABS: BASO % 0.1 % (0-2.0); EOS % 0.4 % (0-4.5); HEMATOCRIT 33.2 % (35.4-49); HEMOGLOBIN 11.5 GM/dL (11.7-16.9); LYMPH % 13.8 % (8-40); MCH 30.4 pg (25.7-33.7); MCHC 34.7 g/dl (32.0-35.9); MEAN CELL VOLUME 87.5 fl (80-96); MONO % 8.7 % (3.8-10.2); PLATELET COUNT 155 10^3/uL (134-434); RDW 13.2 % (11.9-15.9); WHITE BLOOD COUNT 6.2 K/mm3 (4.0-10.0)
[2021-10-13 07:05] LABS: CHLORIDE 104 mmol/L (98-107); SODIUM 139 mmol/L (136-145)
[2021-10-13 07:12] LABS: ALBUMIN 2.9 g/dl (3.4-5.0); BLOOD UREA NITROGEN 7.8 mg/dL (7-18); CALCIUM 8.7 mg/dL (8.5-10.1); CO2 28 mmol/L (21-32); GLUCOSE,RANDOM 86 mg/dL (74-106); MAGNESIUM 1.7 mg/dL (1.8-2.4)
[2021-10-13 07:14] LABS: CREATININE 1.1 mg/dL (0.55-1.3); PHOSPHOROUS 3.2 mg/dL (2.5-4.9); SGOT/AST 41 U/L (15-37)
[2021-10-13 07:15] LABS: BILIRUBIN,TOTAL 0.7 mg/dL (0.2-1)
[2021-10-13 07:16] LABS: TOT PROT 5.8 g/dl (6.4-8.2)
[2021-10-13 07:17] LABS: ALK PHOS 80 U/L (45-117); SGPT/ALT 53 U/L (13-61)
[2021-10-13 07:26] LABS: ANION GAP 7 MMOL/L (8-16)
[2021-10-13] MEDS ORDERED: MAGNESIUM SULFATE IN WATER 2 GM/50 ML IVPB IVPB ONE (08:30)
[2021-10-13] MEDS: KCL 10 MEQ IVPB 10 MEQ/100 ML INFUS.BAG IVPB SCH ×2 (09:26→10:52)
[2021-10-13] MEDS: MUPIROCIN 2% TOPICAL OINTMENT FOR DECOLONIZATION NS SCH ×2 (09:26→22:07)
[2021-10-13] MEDS: levETIRAcetam 500 MG/5 ML INJECTION VIAL IVPB SCH ×3 (09:30→22:07)
[2021-10-13] MEDS ORDERED: LORazepam 2 MG/ML SDV VIAL IVPUSH STA ×2 (09:40→11:16)
[2021-10-13] MEDS: AMINO ACIDS 4.25%/D5W 1,000 ML IV SCH ×2 (10:53→22:05)
[2021-10-13] MEDS: ENOXAPARIN NA (PORCINE) 40 MG/0.4 ML DISP.SYRIN SQ SCH (10:57)
[2021-10-13] MEDS ORDERED: FOSPHENYTOIN SODIUM 1,500 MG in SODIUM CHLORIDE 100 ML IVPB ONE (11:30)
[2021-10-13] MEDS ORDERED: levETIRAcetam 500 MG/5 ML INJECTION VIAL IVPB STA (12:07)
[2021-10-13] MEDS: VANCOMYCIN/WATER FOR INJ (PEG) 1,000 MG/200 ML BAG IVPB SCH (13:04)
[2021-10-13] MEDS: CHLORHEXIDINE GLUCONATE 4% CLEANSER FOR DECOLONIZATION TP SCH (22:07)
[2021-10-14] MEDS ORDERED: DEXTROSE 5%-WATER - 50 ML IVPB ONE ×3 (00:01→17:31)
[2021-10-14] MEDS ORDERED: PIPERACILLIN/TAZOBACTAM 3.375 GM VIAL IVPB ONE ×3 (00:01→17:31)
[2021-10-14] MEDS: PIPERACILLIN/TAZOB 3.375 GM 3.375 GM in DEXTROSE 5%-WATER - 50 ML IVPB SCH ×3 (02:28→17:57)
[2021-10-14] MEDS: levETIRAcetam 500 MG/5 ML INJECTION VIAL IVPB SCH ×3 (05:35→23:07)
[2021-10-14] MEDS ORDERED: FOSPHENYTOIN SODIUM 100 MG/2 ML VIAL IVPB SCH (06:00)
[2021-10-14 07:59] LABS: BASO % 0.2 % (0-2.0); EOS % 0.4 % (0-4.5); HEMATOCRIT 32.8 % (35.4-49); HEMOGLOBIN 11.2 GM/dL (11.7-16.9); MCH 30.3 pg (25.7-33.7); MCHC 34.3 g/dl (32.0-35.9); MEAN CELL VOLUME 88.5 fl (80-96); MEAN PLT VOLUME 7.7 fl (7.5-11.1); MONO % 8.8 % (3.8-10.2); NEUT % 78.6 % (42.8-82.8); PLATELET COUNT 135 10^3/uL (134-434); RBC 3.71 M/mm3 (4.00-5.60); RDW 13.3 % (11.9-15.9); WHITE BLOOD COUNT 6.1 K/mm3 (4.0-10.0)
[2021-10-14 09:01] LABS: BLOOD UREA NITROGEN 11.2 mg/dL (7-18); CALCIUM 8.8 mg/dL (8.5-10.1)
[2021-10-14 09:02] LABS: ALBUMIN 2.8 g/dl (3.4-5.0)
[2021-10-14 09:04] LABS: CREATININE 0.9 mg/dL (0.55-1.3); PHOSPHOROUS 2.8 mg/dL (2.5-4.9)
[2021-10-14 09:06] LABS: BILIRUBIN,TOTAL 0.8 mg/dL (0.2-1); TOT PROT 5.8 g/dl (6.4-8.2)
[2021-10-14] MEDS ORDERED: POTASSIUM CHLORIDE TABS 20 MEQ TABLET.ER (FP) PO ONE (09:08)
[2021-10-14] MEDS: ENOXAPARIN NA (PORCINE) 40 MG/0.4 ML DISP.SYRIN SQ SCH (09:18)
[2021-10-14] MEDS: MUPIROCIN 2% TOPICAL OINTMENT FOR DECOLONIZATION NS SCH (09:23)
[2021-10-14 15:02] VITALS: BMI 21.3
[2021-10-14 23:35] LABS: EPI CELLS 22 /uL (0-25.1); HYALINE CASTS 2 /uL (0-3.1); URINE APPEARANCE CLEAR; URINE BACTERIA 3 /uL (0-1359); URINE BILIRUBIN NEGATIVE (NEGATIVE); URINE COLOR YELLOW; URINE GLUCOSE (UA) NEGATIVE (NEGATIVE); URINE KETONE 1+ (NEGATIVE); URINE LEUK ESTERASE 1+ (NEGATIVE); URINE NITRITE NEGATIVE (NEGATIVE); URINE PROTEIN NEGATIVE (NEGATIVE); URINE RBC 130 /uL (0-23.9); URINE WBC 120 /uL (0-25.8)
[2021-10-15] MEDS ORDERED: PIPERACILLIN/TAZOBACTAM 3.375 GM VIAL IVPB ONE ×3 (01:55→16:37)
[2021-10-15] MEDS ORDERED: DEXTROSE 5%-WATER - 50 ML IVPB ONE ×3 (01:55→16:37)
[2021-10-15] MEDS: PIPERACILLIN/TAZOB 3.375 GM 3.375 GM in DEXTROSE 5%-WATER - 50 ML IVPB SCH ×3 (02:10→17:05)
[2021-10-15] MEDS: levETIRAcetam 500 MG/5 ML INJECTION VIAL IVPB SCH ×2 (06:40→23:50)
[2021-10-15] MEDS: ENOXAPARIN NA (PORCINE) 40 MG/0.4 ML DISP.SYRIN SQ SCH (09:55)
[2021-10-15] MEDS: ATORVASTATIN CA 20 MG TABLET (FP) PO SCH (22:55)
[2021-10-15] MEDS: busPIRone HCL 5 MG TABLET PO SCH (22:55)
[2021-10-15] MEDS: clonazePAM 2 MG TABLET PO SCH (22:55)
[2021-10-16] MEDS: PIPERACILLIN/TAZOB 3.375 GM 3.375 GM in DEXTROSE 5%-WATER - 50 ML IVPB SCH ×2 (03:12→05:30)
[2021-10-16] MEDS ORDERED: PIPERACILLIN/TAZOBACTAM 3.375 GM VIAL IVPB ONE (04:08)
[2021-10-16] MEDS ORDERED: DEXTROSE 5%-WATER - 50 ML IVPB ONE (04:08)
[2021-10-16] MEDS: busPIRone HCL 5 MG TABLET PO SCH ×3 (05:47→21:45)
[2021-10-16 08:06] LABS: INSULIN 1.8 uIU/mL (2.6-24.9)
[2021-10-16] MEDS: ARIPiprazole 2 MG TABLET PO SCH (10:38)
[2021-10-16] MEDS: clonazePAM 2 MG TABLET PO SCH ×2 (10:38→21:45)
[2021-10-16] MEDS: AMOX TR/POT CLAV 875MG/125MG TABLETS (FP) PO SCH ×2 (10:38→18:11)
[2021-10-16] MEDS: ENOXAPARIN NA (PORCINE) 40 MG/0.4 ML DISP.SYRIN SQ SCH (10:38)
[2021-10-16] MEDS: levETIRAcetam 500 MG/5 ML INJECTION VIAL IVPB SCH (10:39)
[2021-10-16 11:08] LABS: SARS-CoV-2 NAA Not Detected (Not Detected)
[2021-10-16 11:11] LABS: BASO % 0.3 % (0-2.0); EOS % 2.8 % (0-4.5); HEMATOCRIT 32.6 % (35.4-49); HEMOGLOBIN 11.5 GM/dL (11.7-16.9); LYMPH % 14.8 % (8-40); MCH 30.4 pg (25.7-33.7); MCHC 35.2 g/dl (32.0-35.9); MEAN CELL VOLUME 86.4 fl (80-96); MEAN PLT VOLUME 6.8 fl (7.5-11.1); MONO % 14.1 % (3.8-10.2); PLATELET COUNT 143 10^3/uL (134-434); RBC 3.77 M/mm3 (4.00-5.60); RDW 13.1 % (11.9-15.9); WHITE BLOOD COUNT 4.5 K/mm3 (4.0-10.0)
[2021-10-16 12:21] LABS: ALBUMIN 2.9 g/dl (3.4-5.0); CALCIUM 9.1 mg/dL (8.5-10.1)
[2021-10-16 12:22] LABS: BLOOD UREA NITROGEN 12.5 mg/dL (7-18)
[2021-10-16 12:25] LABS: CREATININE 0.7 mg/dL (0.55-1.3); PHOSPHOROUS 3.6 mg/dL (2.5-4.9)
[2021-10-16 12:26] LABS: BILIRUBIN,TOTAL 0.4 mg/dL (0.2-1); TOT PROT 6.1 g/dl (6.4-8.2)
[2021-10-16] MEDS: levETIRAcetam 500 MG TABLET (FP) PO SCH (21:45)
[2021-10-16] MEDS: ATORVASTATIN CA 20 MG TABLET (FP) PO SCH (21:45)
[2021-10-16] MEDS ORDERED: MELATONIN 5 MG TABLETS PO ONE (21:45)
[2021-10-17] MEDS: busPIRone HCL 5 MG TABLET PO SCH ×3 (05:30→21:22)
[2021-10-17] MEDS: ARIPiprazole 2 MG TABLET PO SCH (09:41)
[2021-10-17] MEDS: levETIRAcetam 500 MG TABLET (FP) PO SCH ×2 (09:41→21:22)
[2021-10-17] MEDS: AMOX TR/POT CLAV 875MG/125MG TABLETS (FP) PO SCH ×2 (09:41→19:07)
[2021-10-17] MEDS: clonazePAM 2 MG TABLET PO SCH ×2 (09:41→21:22)
[2021-10-17] MEDS: ENOXAPARIN NA (PORCINE) 40 MG/0.4 ML DISP.SYRIN SQ SCH (09:42)
[2021-10-17] MEDS: ATORVASTATIN CA 20 MG TABLET (FP) PO SCH (21:22)
[2021-10-18] MEDS: busPIRone HCL 5 MG TABLET PO SCH (05:22)
[2021-10-18 06:07] VITALS: BP 118/70; PULSE 98; TEMP 98.4
[2021-10-18] MEDS: ARIPiprazole 2 MG TABLET PO SCH (09:40)
[2021-10-18] MEDS: levETIRAcetam 500 MG TABLET (FP) PO SCH (09:40)
[2021-10-18] MEDS: AMOX TR/POT CLAV 875MG/125MG TABLETS (FP) PO SCH (09:40)
[2021-10-18] MEDS: clonazePAM 2 MG TABLET PO SCH (09:41)
[2021-10-18] MEDS: ENOXAPARIN NA (PORCINE) 40 MG/0.4 ML DISP.SYRIN SQ SCH (09:41)
[2021-10-18 16:08] LABS: ALPHA-1-GLOBULIN,CSF 3.3 % (1.1-6.6); GAMMA GLOBULIN,CSF 8.7 % (3.0-13.0); M-SPIKE CSF Not Observed % (Not Observed); PRE-ALBUMIN CSF 2.8 % (2.2-7.1)
== END 2021-10-18 14:08 | disposition home or self-care (01) | DRG 720 ==
LOC: JER 09:58 → JERBED 15:37 → JICU 17:59 → J7W 10-14 17:01
PROVIDERS: ADMIT Internal Medicine Pulmonary Disease; ATTEND Internal Medicine
PROC: 009U3ZX Drainage of Spinal Canal, Percutaneous Approach, Diagnostic (ICD-10-PCS; principal; 2021-10-11)
DX: A41.9 Sepsis, unspecified organism (principal); G92.8 Other toxic encephalopathy; I95.9 Hypotension, unspecified; J69.0 Pneumonitis due to inhalation of food and vomit; T68.XXXA Hypothermia, initial encounter; R56.9 Unspecified convulsions; E16.2 Hypoglycemia, unspecified; E87.6 Hypokalemia; F84.0 Autistic disorder; I10 Essential (primary) hypertension; F41.9 Anxiety disorder, unspecified; R74.01 Elevation of levels of liver transaminase levels; D72.819 Decreased white blood cell count, unspecified
CPT/HCPCS: 36415; 70450-TC; 71045-TC-FY; 80053; 80177; 80307; 81003; 82024; 82550; 82553; 82803; 82943; 82945; 82962; 83525; 83605; 83735; 84100; 84146; 84157; 84166; 84436; 84443; 84479; 85025; 85610; 85730; 86480; 86663; 86664; 86665; 86694; 86735; 86765; 86787; 86788; 86789; 86850; 86900; 86901; 87040; 87070; 87086; 87116; 87205; 87389; 87556; 87899; 93005; 93010; 97116-GP; 97161-GP; 99285-25; C9803-CS; U0003; U0005

== ENCOUNTER 2021-12-10 16:22 | Inpatient (IN) | payer OTHER ==
[2021-12-10 17:05] VITALS: BMI 23.1
[2021-12-10] MEDS ORDERED: SODIUM CHLORIDE 0.9% 500 ML INFUS.BAG IV ONE (17:18)
[2021-12-10 18:49] LABS: BASO % 0.3 % (0-2.0); HEMATOCRIT 34.4 % (35.4-49); HEMOGLOBIN 11.8 GM/dL (11.7-16.9); LYMPH % 37.1 % (8-40); MCHC 34.3 g/dl (32.0-35.9); MEAN CELL VOLUME 87.4 fl (80-96); MEAN PLT VOLUME 7.3 fl (7.5-11.1); NEUT % 50.6 % (42.8-82.8); PLATELET COUNT 199 10^3/uL (134-434); RBC 3.93 M/mm3 (4.00-5.60); RDW 13.3 % (11.9-15.9); WHITE BLOOD COUNT 2.1 K/mm3 (4.0-10.0)
[2021-12-10 18:57] LABS: INR 1.06 (0.83-1.09); PROTHROMBIN TIME (PATIENT) 12.2 SEC (9.7-13.0)
[2021-12-10 18:59] LABS: ACTIVATED PTT 43.5 SECONDS (25.2-36.5)
[2021-12-10 20:10] LABS: ALBUMIN 3.6 g/dl (3.4-5.0); CALCIUM 9.3 mg/dL (8.5-10.1)
[2021-12-10 20:11] LABS: BLOOD UREA NITROGEN 11.5 mg/dL (7-18)
[2021-12-10 20:13] LABS: CREATININE 0.8 mg/dL (0.55-1.3)
[2021-12-10 20:15] LABS: BILIRUBIN,TOTAL 0.5 mg/dL (0.2-1); TOT PROT 6.6 g/dl (6.4-8.2)
[2021-12-10 22:28] LABS: URINE APPEARANCE CLEAR; URINE BILIRUBIN NEGATIVE (NEGATIVE); URINE COLOR YELLOW; URINE GLUCOSE (UA) NEGATIVE (NEGATIVE); URINE KETONE NEGATIVE (NEGATIVE); URINE LEUK ESTERASE NEGATIVE (NEGATIVE); URINE NITRITE NEGATIVE (NEGATIVE); URINE PROTEIN NEGATIVE (NEGATIVE); URINE UROBILINOGEN 0.2 mg/dL (0.2-1.0)
[2021-12-11] MEDS ORDERED: PIPERACILLIN/TAZOB 3.375 GM 3.375 GM in DEXTROSE 5%-WATER - 50 ML IVPB ONE (00:35)
[2021-12-11] MEDS ORDERED: VANCOMYCIN 1,000 MG in DEXTROSE 5%-WATER - 250 ML IVPB ONE (00:35)
[2021-12-11] MEDS ORDERED: VANCOMYCIN 1 GRAM (PRE-DOCKED) 1,000 MG/250 ML BAG IVPB ONE (01:35)
[2021-12-11] MEDS ORDERED: PIPERACILLIN/TAZOB 3.375 GM 3.375 GM/50 ML BAG IVPB ONE ×2 (01:35→11:20)
[2021-12-11] MEDS ORDERED: busPIRone HCL 5 MG TABLET ONE ×3 (06:48→21:49)
[2021-12-11] MEDS: busPIRone HCL 5 MG TABLET PO SCH ×3 (07:01→21:57)
[2021-12-11 07:45] LABS: BASO % 0.6 % (0-2.0); HEMOGLOBIN 13.2 GM/dL (11.7-16.9); LYMPH % 37.4 % (8-40); MCH 30.1 pg (25.7-33.7); MCHC 34.8 g/dl (32.0-35.9); MEAN CELL VOLUME 86.6 fl (80-96); MEAN PLT VOLUME 7.7 fl (7.5-11.1); MONO % 7.3 % (3.8-10.2); NEUT % 53.7 % (42.8-82.8); PLATELET COUNT 221 10^3/uL (134-434); RBC 4.39 M/mm3 (4.00-5.60); RDW 13.3 % (11.9-15.9)
[2021-12-11 07:50] LABS: WHITE BLOOD COUNT 1.8 K/mm3 (4.0-10.0)
[2021-12-11 07:55] LABS: CHLORIDE 103 mmol/L (98-107); SODIUM 135 mmol/L (136-145)
[2021-12-11 08:09] LABS: ALBUMIN 3.7 g/dl (3.4-5.0); CALCIUM 9.6 mg/dL (8.5-10.1)
[2021-12-11 08:10] LABS: BLOOD UREA NITROGEN 8.3 mg/dL (7-18); CO2 28 mmol/L (21-32); GLUCOSE,RANDOM 68 mg/dL (74-106); MAGNESIUM 2.2 mg/dL (1.8-2.4)
[2021-12-11 08:13] LABS: CREATININE 0.9 mg/dL (0.55-1.3); PHOSPHOROUS 3.9 mg/dL (2.5-4.9); SGOT/AST 128 U/L (15-37)
[2021-12-11 08:15] LABS: ALK PHOS 121 U/L (45-117); BILIRUBIN,TOTAL 0.5 mg/dL (0.2-1); TOT PROT 7.4 g/dl (6.4-8.2)
[2021-12-11 08:19] LABS: ANION GAP 4 MMOL/L (8-16); SGPT/ALT 99 U/L (13-61)
[2021-12-11 08:35] LABS: ANISOCYTOSIS 1+; MACROCYTOSIS 0
[2021-12-11] MEDS ORDERED: PIPERACILLIN/TAZOB 3.375 GM 3.375 GM in DEXTROSE 5%-WATER - 50 ML IVPB SCH (10:00)
[2021-12-11] MEDS ORDERED: VANCOMYCIN 1 GM in D5W (PRE-DOCKED) 1,000 MG/250 ML IVPB SCH (10:00)
[2021-12-11] MEDS ORDERED: levETIRAcetam 500 MG/5 ML INJECTION VIAL IVPB SCH (10:00)
[2021-12-11] MEDS ORDERED: LORazepam 2 MG/ML SDV VIAL IVPUSH ONE (10:15)
[2021-12-11] MEDS: ARIPiprazole 2 MG TABLET PO SCH (11:00)
[2021-12-11] MEDS ORDERED: levETIRAcetam 500 MG/5 ML INJECTION VIAL IVPB ONE (11:19)
[2021-12-11] MEDS ORDERED: ENOXAPARIN NA (PORCINE) 40 MG/0.4 ML DISP.SYRIN SQ ONE (11:20)
[2021-12-11 12:45] LABS: CALCIUM 9.6 mg/dL (8.5-10.1)
[2021-12-11 12:46] LABS: ALBUMIN 3.4 g/dl (3.4-5.0); BLOOD UREA NITROGEN 9.8 mg/dL (7-18)
[2021-12-11 12:49] LABS: CREATININE 0.9 mg/dL (0.55-1.3)
[2021-12-11 12:50] LABS: BILIRUBIN,TOTAL 0.4 mg/dL (0.2-1)
[2021-12-11 12:51] LABS: TOT PROT 6.8 g/dl (6.4-8.2)
[2021-12-11] MEDS: ENOXAPARIN NA (PORCINE) 40 MG/0.4 ML DISP.SYRIN SQ SCH (12:56)
[2021-12-11] MEDS ORDERED: CEFEPIME 1 GM/100 ML BAG IVPB ONE ×2 (12:59→22:44)
[2021-12-11] MEDS: CEFEPIME 1 GM in DEXTROSE 5%-WATER 100 ML IVPB SCH ×2 (13:39→23:07)
[2021-12-11] MEDS: levETIRAcetam 500 MG TABLET (FP) PO SCH (21:57)
[2021-12-12] MEDS ORDERED: MELATONIN 5 MG TABLETS PO ONE (01:25)
[2021-12-12] MEDS ORDERED: CEFEPIME HCL 1 GM VIAL (RESTRICTED TO ID) ONE ×2 (04:05→18:04)
[2021-12-12] MEDS ORDERED: DEXTROSE 5%-WATER 100 ML IVPB ONE ×2 (04:05→18:04)
[2021-12-12] MEDS: CEFEPIME 1 GM in DEXTROSE 5%-WATER 100 ML IVPB SCH (04:07)
[2021-12-12] MEDS: busPIRone HCL 5 MG TABLET PO SCH ×4 (05:19→22:53)
[2021-12-12] MEDS ORDERED: DEXTROSE 50%-WATER 25 GM/50 ML DISP.SYRIN ONE (07:44)
[2021-12-12] MEDS ORDERED: levETIRAcetam 500 MG/5 ML INJECTION VIAL IVPB ONE ×2 (07:44→08:00)
[2021-12-12] MEDS ORDERED: LORazepam 2 MG/ML SDV VIAL IVPUSH PRN ×2 (07:51→08:06)
[2021-12-12] MEDS ORDERED: DEXTROSE 50%-WATER - 25 GM/50 ML VIAL IVPUSH ONE (08:00)
[2021-12-12] MEDS: AMINO ACIDS 4.25%/D5W 1,000 ML IV SCH (10:29)
[2021-12-12] MEDS: ENOXAPARIN NA (PORCINE) 40 MG/0.4 ML DISP.SYRIN SQ SCH (10:30)
[2021-12-12] MEDS: ARIPiprazole 2 MG TABLET PO SCH (10:30)
[2021-12-12] MEDS: CEFEPIME 1 GM in DEXTROSE 5%-WATER 1 GM/100 ML BAG IVPB SCH (18:13)
[2021-12-12] MEDS: levETIRAcetam 500 MG TABLET (FP) PO SCH (22:22)
[2021-12-13] MEDS ORDERED: CEFEPIME HCL 1 GM VIAL (RESTRICTED TO ID) ONE (02:10)
[2021-12-13] MEDS ORDERED: DEXTROSE 5%-WATER 100 ML IVPB ONE (02:10)
[2021-12-13] MEDS: CEFEPIME 1 GM in DEXTROSE 5%-WATER 1 GM/100 ML BAG IVPB SCH (02:38)
[2021-12-13] MEDS: busPIRone HCL 5 MG TABLET PO SCH ×2 (06:02→16:34)
[2021-12-13 09:02] LABS: BASO % 0.1 % (0-2.0); EOS % 0.2 % (0-4.5); HEMATOCRIT 35.8 % (35.4-49); HEMOGLOBIN 12.1 GM/dL (11.7-16.9); LYMPH % 12.5 % (8-40); MCH 29.5 pg (25.7-33.7); MCHC 33.9 g/dl (32.0-35.9); MEAN CELL VOLUME 86.9 fl (80-96); MEAN PLT VOLUME 7.5 fl (7.5-11.1); MONO % 3.4 % (3.8-10.2); NEUT % 83.8 % (42.8-82.8); PLATELET COUNT 239 10^3/uL (134-434); RBC 4.12 M/mm3 (4.00-5.60); RDW 13.2 % (11.9-15.9); WHITE BLOOD COUNT 8.6 K/mm3 (4.0-10.0)
[2021-12-13 09:26] LABS: CALCIUM 9.3 mg/dL (8.5-10.1)
[2021-12-13 09:27] LABS: ALBUMIN 3.4 g/dl (3.4-5.0)
[2021-12-13 09:30] LABS: CREATININE 0.9 mg/dL (0.55-1.3)
[2021-12-13 09:31] LABS: BILIRUBIN,TOTAL 0.5 mg/dL (0.2-1); TOT PROT 6.7 g/dl (6.4-8.2)
[2021-12-13] MEDS: ARIPiprazole 2 MG TABLET PO SCH (10:51)
[2021-12-13] MEDS: levETIRAcetam 500 MG TABLET (FP) PO SCH (10:51)
[2021-12-13] MEDS: ENOXAPARIN NA (PORCINE) 40 MG/0.4 ML DISP.SYRIN SQ SCH (10:52)
[2021-12-13] MEDS: AMINO ACIDS 4.25%/D5W 1,000 ML IV SCH (10:53)
[2021-12-13] MEDS ORDERED: HALOPERIDOL LACTATE 5 MG/ML IM ONE (13:45)
[2021-12-13] MEDS ORDERED: LORazepam 2 MG/ML SDV VIAL IM ONE (13:45)
[2021-12-13] MEDS ORDERED: MINERAL OIL/PETROLAT/WATER TOPICAL CREAM 113 GM JAR TP SCH (15:30)
[2021-12-13 17:01] VITALS: BP 106/67; PULSE 75; TEMP 98.2
== END 2021-12-13 16:50 | disposition home or self-care (01) | DRG 663 ==
LOC: JER 16:22 → JERBED 12-11 00:16 → J4S 12-12 00:42
PROVIDERS: ADMIT Internal Medicine
DX: D72.819 Decreased white blood cell count, unspecified (principal); G93.49 Other encephalopathy; T68.XXXA Hypothermia, initial encounter; E16.2 Hypoglycemia, unspecified; F41.9 Anxiety disorder, unspecified; F84.0 Autistic disorder; G40.909 Epilepsy, unspecified, not intractable, without status epilepticus; I10 Essential (primary) hypertension; R00.1 Bradycardia, unspecified; R74.01 Elevation of levels of liver transaminase levels
CPT/HCPCS: 0241U-QW; 36415; 70450-TC; 71045-TC-FY; 80053; 80177; 81003; 82550; 82553; 82962; 83605; 83735; 84100; 84443; 85025; 85610; 85730; 86705; 86803; 87040; 87086; 87340; 87517; 93005; 93010; 99285-25

== ENCOUNTER 2022-01-08 15:46 | Inpatient (IN) | payer OTHER ==
[2022-01-08 16:51] LABS: BASO % 0.5 % (0-2.0); EOS % 1.4 % (0-4.5); HEMATOCRIT 34.3 % (35.4-49); LYMPH % 26.8 % (8-40); MCH 30.3 pg (25.7-33.7); MCHC 34.9 g/dl (32.0-35.9); MEAN CELL VOLUME 86.9 fl (80-96); MEAN PLT VOLUME 7.5 fl (7.5-11.1); MONO % 4.9 % (3.8-10.2); NEUT % 66.4 % (42.8-82.8); PLATELET COUNT 213 10^3/uL (134-434); RBC 3.95 M/mm3 (4.00-5.60); RDW 13.2 % (11.9-15.9); WHITE BLOOD COUNT 2.9 K/mm3 (4.0-10.0)
[2022-01-08 17:26] LABS: ALBUMIN 3.7 g/dl (3.4-5.0); BLOOD UREA NITROGEN 12.2 mg/dL (7-18); CALCIUM 9.3 mg/dL (8.5-10.1)
[2022-01-08 17:29] LABS: CREATININE 1.1 mg/dL (0.55-1.3)
[2022-01-08 17:30] LABS: BILIRUBIN,TOTAL 0.2 mg/dL (0.2-1); TOT PROT 6.6 g/dl (6.4-8.2)
[2022-01-08] MEDS ORDERED: levETIRAcetam 500 MG/5 ML INJECTION VIAL IVPB ONE ×2 (18:46→18:52)
[2022-01-08 19:18] LABS: PH,URINE 5.5 (5.0-8.0); URINE APPEARANCE CLEAR; URINE BILIRUBIN NEGATIVE (NEGATIVE); URINE COLOR YELLOW; URINE GLUCOSE (UA) NEGATIVE (NEGATIVE); URINE KETONE NEGATIVE (NEGATIVE); URINE LEUK ESTERASE NEGATIVE (NEGATIVE); URINE NITRITE NEGATIVE (NEGATIVE); URINE PROTEIN NEGATIVE (NEGATIVE); URINE UROBILINOGEN 0.2 mg/dL (0.2-1.0)
[2022-01-08] MEDS ORDERED: VANCOMYCIN 1 GM in D5W (PRE-DOCKED) 1,000 MG/250 ML IVPB SCH (23:19)
[2022-01-08] MEDS ORDERED: PIPERACILLIN/TAZOB 3.375 GM 3.375 GM/50 ML BAG IVPB ONE (23:29)
[2022-01-09] MEDS: PIPERACILLIN/TAZOB 3.375 GM 3.375 GM in DEXTROSE 5%-WATER - 50 ML IVPB SCH ×4 (00:07→19:51)
[2022-01-09] MEDS ORDERED: HALOPERIDOL LACTATE 5 MG/ML IM ONE (02:10)
[2022-01-09] MEDS ORDERED: HALOPERIDOL LACTATE 5 MG/ML IM PRN (03:09)
[2022-01-09 07:51] LABS: RBC 4.67 M/mm3 (4.00-5.60); WHITE BLOOD COUNT 2.5 K/mm3 (4.0-10.0)
[2022-01-09 07:52] LABS: BASO % 0.5 % (0-2.0); EOS % 1.1 % (0-4.5); HEMATOCRIT 40.3 % (35.4-49); HEMOGLOBIN 13.9 GM/dL (11.7-16.9); LYMPH % 32.1 % (8-40); MCH 29.7 pg (25.7-33.7); MCHC 34.4 g/dl (32.0-35.9); MEAN CELL VOLUME 86.3 fl (80-96); MONO % 7.7 % (3.8-10.2); NEUT % 58.6 % (42.8-82.8); PLATELET COUNT 205 10^3/uL (134-434); RDW 13.4 % (11.9-15.9)
[2022-01-09 08:06] LABS: CALCIUM 9.9 mg/dL (8.5-10.1)
[2022-01-09 08:07] LABS: ALBUMIN 3.9 g/dl (3.4-5.0); BLOOD UREA NITROGEN 11.3 mg/dL (7-18); MAGNESIUM 2.5 mg/dL (1.8-2.4)
[2022-01-09 08:09] LABS: PHOSPHOROUS 3.5 mg/dL (2.5-4.9)
[2022-01-09 08:10] LABS: BILIRUBIN,TOTAL 0.4 mg/dL (0.2-1); TOT PROT 7.4 g/dl (6.4-8.2)
[2022-01-09] MEDS ORDERED: busPIRone HCL 5 MG TABLET ONE ×2 (09:04→14:25)
[2022-01-09] MEDS ORDERED: PIPERACILLIN/TAZOB 3.375 GM 3.375 GM/50 ML BAG IVPB ONE ×2 (09:05→12:43)
[2022-01-09] MEDS: busPIRone HCL 5 MG TABLET PO SCH ×3 (09:17→22:56)
[2022-01-09] MEDS ORDERED: SODIUM CHLORIDE 1,000 ML IV SCH (09:45)
[2022-01-09] MEDS ORDERED: levETIRAcetam 500 MG TABLET (FP) PO ONE (11:17)
[2022-01-09] MEDS ORDERED: LORATADINE 10 MG TABLET ONE (11:17)
[2022-01-09] MEDS ORDERED: ENOXAPARIN NA (PORCINE) 40 MG/0.4 ML DISP.SYRIN SQ ONE (11:18)
[2022-01-09] MEDS: ARIPiprazole 2 MG TABLET PO SCH (11:25)
[2022-01-09] MEDS: LORATADINE 10 MG TABLET PO SCH (11:25)
[2022-01-09] MEDS: levETIRAcetam 500 MG TABLET (FP) PO SCH ×2 (11:25→22:56)
[2022-01-09] MEDS: ENOXAPARIN NA (PORCINE) 40 MG/0.4 ML DISP.SYRIN SQ SCH (11:26)
[2022-01-09] MEDS ORDERED: DEXTROSE 50%-WATER 25 GM/50 ML DISP.SYRIN ONE (13:14)
[2022-01-09] MEDS ORDERED: DEXTROSE 50%-WATER - 25 GM/50 ML VIAL IVPUSH ONE (13:42)
[2022-01-09] MEDS: DEXTROSE 5%-NORMAL SALINE 1,000 ML IV SCH (14:50)
[2022-01-09] MEDS ORDERED: LORazepam 2 MG/ML SDV VIAL IM ONE (15:54)
[2022-01-09] MEDS ORDERED: PIPERACILLIN/TAZOB 3.375 GM 3.375 GM in DEXTROSE 5%-WATER - 50 ML IVPB SCH (18:00)
[2022-01-09] MEDS ORDERED: LORazepam 2 MG/ML SDV VIAL IM PRN (18:05)
[2022-01-09] MEDS ORDERED: DEXTROSE 5%-WATER - 50 ML IVPB ONE (19:50)
[2022-01-09] MEDS ORDERED: PIPERACILLIN/TAZOBACTAM 3.375 GM VIAL IVPB ONE (19:50)
[2022-01-09 20:35] VITALS: BMI 19.6
[2022-01-09] MEDS: ATORVASTATIN CA 20 MG TABLET (FP) PO SCH (22:56)
[2022-01-09] MEDS ORDERED: VANCOMYCIN 1 GM in D5W (PRE-DOCKED) 1,000 MG/250 ML IVPB SCH (23:00)
[2022-01-10] MEDS ORDERED: PIPERACILLIN/TAZOBACTAM 3.375 GM VIAL IVPB ONE ×2 (01:49→11:15)
[2022-01-10] MEDS ORDERED: DEXTROSE 5%-WATER - 50 ML IVPB ONE ×2 (01:49→11:15)
[2022-01-10] MEDS: PIPERACILLIN/TAZOB 3.375 GM 3.375 GM in DEXTROSE 5%-WATER - 50 ML IVPB SCH ×2 (01:57→11:16)
[2022-01-10] MEDS ORDERED: DEXTROSE 50%-WATER - 25 GM/50 ML VIAL IVPUSH ONE ×2 (01:59→06:11)
[2022-01-10] MEDS ORDERED: DEXTROSE 50%-WATER 25 GM/50 ML DISP.SYRIN ONE ×2 (02:15→06:14)
[2022-01-10] MEDS: busPIRone HCL 5 MG TABLET PO SCH ×3 (06:11→22:27)
[2022-01-10 10:53] LABS: BASO % 0.4 % (0-2.0); EOS % 1.7 % (0-4.5); HEMATOCRIT 36.1 % (35.4-49); HEMOGLOBIN 12.5 GM/dL (11.7-16.9); LYMPH % 30.1 % (8-40); MCH 29.6 pg (25.7-33.7); MCHC 34.6 g/dl (32.0-35.9); MEAN CELL VOLUME 85.6 fl (80-96); MEAN PLT VOLUME 6.9 fl (7.5-11.1); MONO % 8.1 % (3.8-10.2); NEUT % 59.7 % (42.8-82.8); PLATELET COUNT 193 10^3/uL (134-434); RBC 4.22 M/mm3 (4.00-5.60); RDW 13.6 % (11.9-15.9); WHITE BLOOD COUNT 2.6 K/mm3 (4.0-10.0)
[2022-01-10] MEDS: levETIRAcetam 500 MG TABLET (FP) PO SCH ×2 (11:17→22:27)
[2022-01-10] MEDS: LORATADINE 10 MG TABLET PO SCH (11:17)
[2022-01-10] MEDS: ENOXAPARIN NA (PORCINE) 40 MG/0.4 ML DISP.SYRIN SQ SCH (11:17)
[2022-01-10 11:21] LABS: ALBUMIN 3.2 g/dl (3.4-5.0); BLOOD UREA NITROGEN 7.6 mg/dL (7-18); MAGNESIUM 2.1 mg/dL (1.8-2.4)
[2022-01-10 11:22] LABS: CALCIUM 8.8 mg/dL (8.5-10.1)
[2022-01-10 11:24] LABS: CREATININE 0.8 mg/dL (0.55-1.3)
[2022-01-10 11:27] LABS: BILIRUBIN,TOTAL 0.3 mg/dL (0.2-1); TOT PROT 6.1 g/dl (6.4-8.2)
[2022-01-10] MEDS: ARIPiprazole 2 MG TABLET PO SCH (12:33)
[2022-01-10] MEDS: DEXTROSE 5%-NORMAL SALINE 1,000 ML IV SCH (15:31)
[2022-01-10] MEDS ORDERED: DEXTROSE 5%-NORMAL SALINE 1,000 ML IV SCH (16:11)
[2022-01-10] MEDS: ATORVASTATIN CA 20 MG TABLET (FP) PO SCH (22:27)
[2022-01-11] MEDS: busPIRone HCL 5 MG TABLET PO SCH ×3 (06:06→21:38)
[2022-01-11 08:34] LABS: BASO % 0.2 % (0-2.0); EOS % 1.9 % (0-4.5); HEMATOCRIT 37.9 % (35.4-49); HEMOGLOBIN 12.8 GM/dL (11.7-16.9); LYMPH % 36.2 % (8-40); MCH 29.3 pg (25.7-33.7); MCHC 33.9 g/dl (32.0-35.9); MEAN CELL VOLUME 86.6 fl (80-96); MONO % 7.4 % (3.8-10.2); NEUT % 54.3 % (42.8-82.8); PLATELET COUNT 192 10^3/uL (134-434); RBC 4.38 M/mm3 (4.00-5.60); RDW 13.2 % (11.9-15.9)
[2022-01-11] MEDS: levETIRAcetam 500 MG TABLET (FP) PO SCH ×2 (09:02→21:38)
[2022-01-11] MEDS: LORATADINE 10 MG TABLET PO SCH (09:02)
[2022-01-11] MEDS: ARIPiprazole 2 MG TABLET PO SCH (09:03)
[2022-01-11 09:09] LABS: ALBUMIN 3.3 g/dl (3.4-5.0); BLOOD UREA NITROGEN 9.1 mg/dL (7-18); CALCIUM 9.5 mg/dL (8.5-10.1)
[2022-01-11] MEDS: ENOXAPARIN NA (PORCINE) 40 MG/0.4 ML DISP.SYRIN SQ SCH (09:09)
[2022-01-11 09:12] LABS: TOT PROT 6.2 g/dl (6.4-8.2)
[2022-01-11 09:13] LABS: CREATININE 0.9 mg/dL (0.55-1.3)
[2022-01-11 09:15] LABS: BILIRUBIN,TOTAL 0.4 mg/dL (0.2-1)
[2022-01-11] MEDS ORDERED: ACETAMINOPHEN 325 MG TABLET (FP) PO PRN (15:57)
[2022-01-11] MEDS: ATORVASTATIN CA 20 MG TABLET (FP) PO SCH (21:38)
[2022-01-11] MEDS: DEXTROSE 4 GM TAB.CHEW PO SCH (21:38)
[2022-01-11] MEDS: clonazePAM 2 MG TABLET PO SCH (21:38)
[2022-01-11] MEDS ORDERED: clonazePAM 2 MG TABLET PO SCH (22:00)
[2022-01-12] MEDS: busPIRone HCL 5 MG TABLET PO SCH ×3 (06:16→21:44)
[2022-01-12 09:02] LABS: BASO % 0.3 % (0-2.0); EOS % 1.3 % (0-4.5); HEMATOCRIT 40.7 % (35.4-49); HEMOGLOBIN 13.6 GM/dL (11.7-16.9); LYMPH % 37.4 % (8-40); MCH 29.3 pg (25.7-33.7); MCHC 33.4 g/dl (32.0-35.9); MEAN CELL VOLUME 87.6 fl (80-96); MEAN PLT VOLUME 7.3 fl (7.5-11.1); MONO % 7.2 % (3.8-10.2); NEUT % 53.8 % (42.8-82.8); PLATELET COUNT 214 10^3/uL (134-434); RBC 4.65 M/mm3 (4.00-5.60); RDW 13.2 % (11.9-15.9); WHITE BLOOD COUNT 2.7 K/mm3 (4.0-10.0)
[2022-01-12 09:33] LABS: ALBUMIN 3.8 g/dl (3.4-5.0); BLOOD UREA NITROGEN 12.2 mg/dL (7-18); CREATININE 0.9 mg/dL (0.55-1.3)
[2022-01-12 09:34] LABS: CALCIUM 9.6 mg/dL (8.5-10.1)
[2022-01-12 09:35] LABS: BILIRUBIN,TOTAL 0.4 mg/dL (0.2-1); MAGNESIUM 2.1 mg/dL (1.8-2.4)
[2022-01-12] MEDS: levETIRAcetam 500 MG TABLET (FP) PO SCH ×2 (10:41→21:44)
[2022-01-12] MEDS: LORATADINE 10 MG TABLET PO SCH (10:41)
[2022-01-12] MEDS: ARIPiprazole 2 MG TABLET PO SCH (10:42)
[2022-01-12] MEDS: clonazePAM 2 MG TABLET PO SCH ×2 (10:42→21:44)
[2022-01-12] MEDS: DEXTROSE 4 GM TAB.CHEW PO SCH ×2 (10:43→21:44)
[2022-01-12] MEDS: ENOXAPARIN NA (PORCINE) 40 MG/0.4 ML DISP.SYRIN SQ SCH (10:45)
[2022-01-12 15:33] LABS: PH,URINE 5.5 (5.0-8.0); URINE APPEARANCE CLEAR; URINE BILIRUBIN NEGATIVE (NEGATIVE); URINE COLOR YELLOW; URINE GLUCOSE (UA) NEGATIVE (NEGATIVE); URINE KETONE NEGATIVE (NEGATIVE); URINE LEUK ESTERASE NEGATIVE (NEGATIVE); URINE NITRITE NEGATIVE (NEGATIVE); URINE PROTEIN NEGATIVE (NEGATIVE); URINE UROBILINOGEN 0.2 mg/dL (0.2-1.0)
[2022-01-12] MEDS: ATORVASTATIN CA 20 MG TABLET (FP) PO SCH (21:44)
[2022-01-13] MEDS: busPIRone HCL 5 MG TABLET PO SCH ×2 (06:11→13:24)
[2022-01-13] MEDS: levETIRAcetam 500 MG TABLET (FP) PO SCH (11:48)
[2022-01-13] MEDS: LORATADINE 10 MG TABLET PO SCH (11:49)
[2022-01-13] MEDS: clonazePAM 2 MG TABLET PO SCH (11:49)
[2022-01-13] MEDS: ENOXAPARIN NA (PORCINE) 40 MG/0.4 ML DISP.SYRIN SQ SCH (11:49)
[2022-01-13] MEDS: ARIPiprazole 2 MG TABLET PO SCH (11:50)
[2022-01-13] MEDS: DEXTROSE 4 GM TAB.CHEW PO SCH (11:52)
[2022-01-13 13:49] VITALS: BP 134/79; PULSE 91; TEMP 98.4
== END 2022-01-13 17:11 | disposition home or self-care (01) | DRG 52 ==
LOC: JER 15:46 → JERBED 18:30 → OBSVTOIN 23:00 → J5S 01-09 15:10
PROVIDERS: ADMIT Internal Medicine; ATTEND Nurse Practitioner Family
DX: G93.41 Metabolic encephalopathy (principal); G40.909 Epilepsy, unspecified, not intractable, without status epilepticus; F84.0 Autistic disorder; F41.9 Anxiety disorder, unspecified; I10 Essential (primary) hypertension; E16.2 Hypoglycemia, unspecified; D72.819 Decreased white blood cell count, unspecified; R00.1 Bradycardia, unspecified; I95.89 Other hypotension
CPT/HCPCS: 36415; 70450-TC; 71045-TC-FY; 80053; 80177; 81003; 82550; 82553; 82962; 83605; 83735; 84100; 84443; 84484; 85025; 87040; 87086; 93005; 93010; 97116-GP; 97162-GP; 99285-25; C9803-CS; G0378; U0003; U0005

== ENCOUNTER 2022-01-26 18:37 | Emergency (ER) | payer OTHER ==
[2022-01-26 19:00] VITALS: BP 107/68; PULSE 84; TEMP 98; BMI 24.4
[2022-01-26] MEDS ORDERED: levETIRAcetam 500 MG TABLET (FP) PO ONE ×2 (19:30→19:33)
== END 2022-01-26 20:35 | disposition home or self-care (01) ==
LOC: JER 18:37
DX: Z76.0 Encounter for issue of repeat prescription (principal)
CPT/HCPCS: 99281-25

== ENCOUNTER 2023-06-30 12:00 | Emergency (ER) | payer OTHER ==
[2023-06-30 12:04] VITALS: BP 115/77; PULSE 88; RESP 18; TEMP 98.6; BMI 24.4
[2023-06-30 12:34] LABS: HEMATOCRIT 41.1 % (35.4-49); HEMOGLOBIN 13.8 G/dL (11.7-16.9); MCH 29.1 pg (25.7-33.7); MCHC 33.6 g/dl (32.0-35.9); MEAN CELL VOLUME 86.4 fl (80-96); MEAN PLT VOLUME 6.8 fl (7.5-11.1); PLATELET COUNT 179.1 10^3/uL (134-434); RBC 4.76 10^6/uL (4.00-5.60); RDW 13.9 % (11.9-15.9); WHITE BLOOD COUNT 4.2 10^3/uL (4.0-10.8)
[2023-06-30] MEDS ORDERED: SODIUM CHLORIDE 1,000 ML IV STA (13:00)
[2023-06-30 14:06] LABS: ALBUMIN 4.3 g/dl (3.4-5.0); BILIRUBIN,TOTAL 0.4 mg/dl (0.2-1); CALCIUM 9.4 mg/dl (8.5-10.1); CREATININE 1.1 mg/dl (0.6-1.3); POTASSIUM 3.9 mmol/L (3.5-5.1); TOT PROT 6.7 g/dl (6.4-8.2)
[2023-06-30 15:23] LABS: PLATELET ESTIMATE ADEQUATE
== END 2023-06-30 14:58 | disposition home or self-care (01) ==
LOC: FER 12:00
PROC: 3E0337Z Introduction of Electrolytic and Water Balance Substance into Peripheral Vein, Percutaneous Approach (ICD-10-PCS; principal; 2023-06-30)
DX: R07.81 Pleurodynia (principal)
CPT/HCPCS: 36415; 71045-TC-FY; 80053; 81003; 85027; 87086; 93005; 99285-25

== ENCOUNTER 2023-10-21 11:23 | Emergency (ER) | payer OTHER ==
[2023-10-21 11:33] VITALS: BP 120/75; PULSE 88; RESP 16; TEMP 97.7; BMI 27.2
== END 2023-10-21 12:16 | disposition home or self-care (01) ==
LOC: FER 11:23
DX: S80.811A Abrasion, right lower leg, initial encounter (principal); X58.XXXA Exposure to other specified factors, initial encounter
CPT/HCPCS: 99283-25

== ENCOUNTER 2023-10-26 10:35 | Emergency (ER) | payer OTHER ==
[2023-10-26 10:52] VITALS: BP 115/79; PULSE 91; RESP 18; TEMP 98.7; BMI 27.2
[2023-10-26] MEDS ORDERED: DIPHTH,PERTUSS(ACELL),TET 0.5 ML DISP.SYRIN IM ONE (11:35)
== END 2023-10-26 12:35 | disposition home or self-care (01) ==
LOC: FER 10:35
PROC: 0XQBXZZ Repair Right Elbow Region, External Approach (ICD-10-PCS; principal; 2023-10-26)
DX: S51.011A Laceration without foreign body of right elbow, initial encounter (principal); X58.XXXA Exposure to other specified factors, initial encounter
CPT/HCPCS: 99283-25

== ENCOUNTER 2023-10-26 19:21 | Emergency (ER) | payer OTHER ==
[2023-10-26 19:46] VITALS: BP 118/65; PULSE 76; RESP 18; TEMP 97.8; BMI 27.1
[2023-10-26] MEDS ORDERED: LIDOCAINE HCL 1%, 10 MG/ML (20ML VIAL) ONE (22:05)
[2023-10-26] MEDS ORDERED: IBUPROFEN 600 MG TABLET (FP) PO ONE (22:23)
== END 2023-10-26 22:29 | disposition home or self-care (01) ==
LOC: FER 19:21
PROC: 0PSTXZZ Reposition Right Finger Phalanx, External Approach (ICD-10-PCS; principal; 2023-10-26)
DX: S63.256A Unspecified dislocation of right little finger, initial encounter (principal); X58.XXXA Exposure to other specified factors, initial encounter
CPT/HCPCS: 73140-TC-RT-FY; 99283-25

== ENCOUNTER 2023-11-05 13:32 | Emergency (ER) | payer OTHER ==
[2023-11-05 13:52] VITALS: BP 124/71; PULSE 98; RESP 18; TEMP 98.1; BMI 24.9
== END 2023-11-05 14:17 | disposition home or self-care (01) ==
LOC: FER 13:32
DX: Z48.02 Encounter for removal of sutures (principal)
CPT/HCPCS: 99281-25

== ENCOUNTER 2024-05-20 16:57 | Emergency (ER) | payer OTHER ==
[2024-05-20 17:22] VITALS: BP 119/76; PULSE 90; RESP 16; TEMP 98.2; BMI 27.8
== END 2024-05-20 22:30 | disposition home or self-care (01) ==
LOC: JER 16:57
DX: M25.561 Pain in right knee (principal); M25.562 Pain in left knee; W22.8XXA Striking against or struck by other objects, initial encounter
CPT/HCPCS: 70450-TC; 73560-TC-LT-FY; 73560-TC-RT-FY; 73564-TC-RT-FY; 99284-25

== ENCOUNTER 2024-05-26 11:12 | Emergency (ER) | payer OTHER ==
[2024-05-26 11:20] VITALS: BP 108/70; PULSE 94; RESP 18; TEMP 98.2; BMI 24.9
== END 2024-05-26 12:06 | disposition home or self-care (01) ==
LOC: FER 11:12
DX: K13.1 Cheek and lip biting (principal)
CPT/HCPCS: 99283-25